=== PATIENT | female | born 1960 | race Caucasian/White ===

== ENCOUNTER 2024-04-20 13:19 | Emergency (ER) | payer SELFPAY ==
[2024-04-20] VITALS (10 sets, daily range): BP systolic 84–139; BP diastolic 53–78; PULSE 69–84; TEMP 36.8; O2SAT 91–100; BMI 24.1
--- NOTE | 2024-04-20 13:25 | XR_ITS ---
The [address] [address] Patient Name: THONG DIAZ MRN: [id number] date: 1960 Sex: F Assigned Patient Location: ED.MAIN Current Patient Location: ER Accession/Order Number: [id number] Exam Date: 04/20/2024 14:00 Report Date: 04/20/2024 16:01 At the request of: JANIA LING Procedure: XR hip RT 2V w/ pelvis RIGHT HIP X-RAYS, 04/20/2024. HISTORY: Right hip pain. COMPARISON: None. FINDINGS: 3 views obtained. There is a right total hip arthroplasty. The femoral head component is dislocated superiorly from the acetabular component. No fracture identified. XR/XR hip RT 2V w/ pelvis IMPRESSION: Dislocation of the right hip arthroplasty. The femoral head component is dislocated superiorly from the acetabular component. No fracture identified. Electronically authenticated by: OPAL CALIXTO Date: 04/20/2024 16:01
--- NOTE | 2024-04-20 13:26 | ED_ITS ---
Documented by User: Alicia Adamson 04/20/24 16:52 HPI HPI - Extremity Injury (Lower) General Chief Complaint: Extremity Injury, Lower Stated Complaint: HIP PAIN/FALL Time Seen by Provider: 04/20/24 13:24 History of Present Illness HPI Narrative: 63 year old female presents to the ED via EMS for pain to her right hip. Onset was this afternoon while standing, rearranging items in her closet. States she had to crawl to her phone. She had a right hip replacement approx 1 month ago. Denies fever, chills, weakness, N/T. She was given 4 mg Zofran IV and 1 mg Dilaudid IV per EMS. Related Data Home Medications ?Medication ?Instructions ?Recorded ?Confirmed amitriptyline 50 mg tablet 50 mg PO DAILY 04/20/24 04/20/24 diclofenac sodium 25 mg 25 mg PO BID 04/20/24 04/20/24 tablet,delayed release duloxetine 30 mg capsule,delayed 30 mg PO BID 04/20/24 04/20/24 release (Cymbalta) levothyroxine 75 mcg tablet 75 mcg PO DAILY 04/20/24 04/20/24 (Euthyrox) Allergies Allergy/AdvReac Type Severity Reaction Status Date / Time No Known Drug Allergies Allergy Verified 04/20/24 13:22 Opioid HPI Opioid Management Most Recent Pain and Opioid Data: Last Pain Scale 10 04/20/24 13:49 04/20/24 Last MAR Pain Assessment 04/20/24 13:43 Review of Systems ROS Constitutional Denies: fever or chills Cardiovascular Denies: chest pain Respiratory Denies: shortness of breath Musculoskeletal Reports: extremity pain; Denies: back pain or neck pain Integumentary/Breast Denies: rash Neurological Denies: numbness in extremities Exam HENMT Mouth: oral and palatal mucosa normal and lip normal Eye Common normals: conjunctivae normal Neck & C-Spine Common normals: supple Respiratory Effort & inspection: able to speak in complete sentences and symmetric chest movement Cardio Common normals: regular rate Peripheral pulses: posterior tibial pulses present and dorsalis pedis pulses present Back & Pelvis Thoracic spine/upper back: no thoracic spinal tenderness and no paraspinal muscle tenderness Lumbar spine/lower back: no lumbar spinal tenderness and no paraspinal muscle tenderness Extremity Other: Tenderness, decreased ROM to her right hip area. Distal sensation intact. Pedal pulses palpable. Right leg appears shortened. MDM - Extremity Injury (Lower) MDM Narrative Medical decision making narrative: X-ray showed dislocation of the right hip. Conscious sedation was completed per Dr. Ricks after she spoke with Dr. Kaplan. Post-reduction imaging showed successful reduction. The patient tolerated the procedure well. She is to follow up with her orthopedist Dr. Aguilar tomorrow morning. She will be discharged to family. Dr. Ricks: I did speak with Dr. Kaplan since she is about 2 weeks postop from her hip replacement and he said it was fine to do the reduction. Medical Records Attestation: I reviewed the patient's medical records. Imaging Data XR hip: Attestation: I have reviewed the pertinent imaging results. Radiologist's impression: ITS Impressions Hip/Pelvis X-Ray 04/20/24 13:25 IMPRESSION: Dislocation of the right hip arthroplasty. The femoral head component is dislocated superiorly from the acetabular component. No fracture identified. Electronically authenticated by: OPAL CALIXTO Date: 04/20/2024 14:57 Pelvis X-Ray 04/20/24 15:18 IMPRESSION: Patient is post right hip arthroplasty with interval reduction and in normal alignment on current examination. No obvious acute fracture is seen. No significant periprosthetic lucency seen. Electronically authenticated by: AURA LYMAN Date: 04/20/2024 15:57 Discharge Plan Discharge Chief Complaint: Extremity Injury, Lower Clinical Impression: Hip dislocation, right Patient Disposition: Home, Self-Care Time of Disposition Decision: 15:53 Condition: Good Mode of Transportation: Private Vehicle Prescriptions / Home Meds: No Action amitriptyline 50 mg tablet 50 mg PO DAILY levothyroxine [Euthyrox] 75 mcg tablet 75 mcg PO DAILY duloxetine [Cymbalta] 30 mg capsule,delayed release(DR/EC) 30 mg PO BID diclofenac sodium 25 mg tablet,delayed release (DR/EC) 25 mg PO BID Print Language: Salvadorean Instructions: Moderate Sedation (ED), Hip Dislocation (ED) Additional Instructions: Follow up with your orthopedic surgeon for a recheck. Please call the [place] office tomorrow morning for an appointment time. Referrals: Physician,Non-Staff, MD [Primary Care Provider] - 1 week Discharge Date/Time: 04/20/24 16:30 Documented by User: Ayesha RicksDO 04/20/24 15:37 HPI HPI - Extremity Injury (Lower) General Chief Complaint: Extremity Injury, Lower Stated Complaint: HIP PAIN/FALL Time Seen by Provider: 04/20/24 13:24 Related Data Home Medications ?Medication ?Instructions ?Recorded ?Confirmed amitriptyline 50 mg tablet 50 mg PO DAILY 04/20/24 04/20/24 diclofenac sodium 25 mg 25 mg PO BID 04/20/24 04/20/24 tablet,delayed release duloxetine 30 mg capsule,delayed 30 mg PO BID 04/20/24 04/20/24 release (Cymbalta) levothyroxine 75 mcg tablet 75 mcg PO DAILY 04/20/24 04/20/24 (Euthyrox) Allergies Allergy/AdvReac Type Severity Reaction Status Date / Time No Known Drug Allergies Allergy Verified 04/20/24 13:22 Opioid HPI Opioid Management Most Recent Pain and Opioid Data: Last Pain Scale 10 04/20/24 13:49 04/20/24 Last MAR Pain Assessment 04/20/24 13:43 MDM - Extremity Injury (Lower) MDM Narrative Medical decision making narrative: I did speak with Dr. Kaplan since she is about 2 weeks postop from her hip replacement and he said it was fine to do the reduction. Imaging Data XR hip: Radiologist's impression: ITS Impressions Hip/Pelvis X-Ray 04/20/24 13:25 IMPRESSION: Dislocation of the right hip arthroplasty. The femoral head component is dislocated superiorly from the acetabular component. No fracture identified. Electronically authenticated by: OPAL CALIXTO Date: 04/20/2024 14:57 Pelvis X-Ray 04/20/24 15:18 IMPRESSION: Patient is post right hip arthroplasty with interval reduction and in normal alignment on current examination. No obvious acute fracture is seen. No significant periprosthetic lucency seen. Electronically authenticated by: AURA LYMAN Date: 04/20/2024 15:57 Discharge Plan Discharge Chief Complaint: Extremity Injury, Lower Clinical Impression: Hip dislocation, right Patient Disposition: Home, Self-Care Time of Disposition Decision: 15:53 Condition: Good Mode of Transportation: Private Vehicle Prescriptions / Home Meds: No Action amitriptyline 50 mg tablet 50 mg PO DAILY levothyroxine [Euthyrox] 75 mcg tablet 75 mcg PO DAILY duloxetine [Cymbalta] 30 mg capsule,delayed release(DR/EC) 30 mg PO BID diclofenac sodium 25 mg tablet,delayed release (DR/EC) 25 mg PO BID Print Language: Salvadorean Instructions: Moderate Sedation (ED), Hip Dislocation (ED) Additional Instructions: Follow up with your orthopedic surgeon for a recheck. Please call the [place] office tomorrow morning for an appointment time. Referrals: Physician,Non-Staff, MD [Primary Care Provider] - 1 week Discharge Date/Time: 04/20/24 16:30 Procedures ED Orthopedic Joint Reduction Moderate Sedation Message Please read if using moderate sedation: 130 mg in total of propofol used. Patient did not have any hypoxia episodes. Fracture was reduced and patient woke up from anesthesia without any difficulty. She is feeling better. Orthopedic Joint Reduction Joint #1: Time out performed: Yes Side: right Joint reduction location: hip Analgesia: procedural sedation Technique used: traction/counter-traction Post-reduction neuro exam: intact Post-reduction vascular exam: intact Post-reduction x-ray obtained: Yes Post-reduction x-ray results: reduced Splint applied: Yes Patient tolerated procedure: well
[2024-04-20] MEDS: HYDROMORPHONE HCL 0.5 MG/0.5 ML SYRINGE IV (13:43)
[2024-04-20] MEDS: PROPOFOL 200 MG/20 ML VIAL IVP (15:01)
--- NOTE | 2024-04-20 15:18 | XR_ITS ---
The [address] [address] Patient Name: THONG DIAZ MRN: [id number] date: 1960 Sex: F Assigned Patient Location: ER Current Patient Location: ER Accession/Order Number: [id number] Exam Date: 04/20/2024 15:25 Report Date: 04/20/2024 15:57 At the request of: SHERLY SOLIS Procedure: XR pelvis 1-2V EXAM: XR pelvis 1-2V HISTORY: R hip reduction COMPARISON: XR hip RT 2V w/ pelvis Date 04/20/2024 1:57:19 PM TECHNIQUE: Single portable postreduction view of the pelvis FINDINGS: Patient is post right hip arthroplasty with interval reduction and in normal alignment on current examination. No obvious acute fracture is seen. No significant periprosthetic lucency seen. XR/XR pelvis 1-2V IMPRESSION: Patient is post right hip arthroplasty with interval reduction and in normal alignment on current examination. No obvious acute fracture is seen. No significant periprosthetic lucency seen. Electronically authenticated by: AURA LYMAN Date: 04/20/2024 15:57
== END 2024-04-20 16:30 | disposition home or self-care (01) ==
PROVIDERS: Emergency Provider Emergency Medicine
DX: T84.020A Dislocation of internal right hip prosthesis, initial encounter (principal)
CPT/HCPCS: 27265; 72170; 73502; 96374; 96375; 99152; 99285; J1171; J2704

== ENCOUNTER 2024-06-07 17:28 | Emergency (ER) | payer OTHER, SELFPAY ==
[2024-06-07] VITALS (37 sets, daily range): BP systolic 106–184; BP diastolic 63–119; PULSE 71–136; TEMP 37; O2SAT 93–100
--- NOTE | 2024-06-07 17:32 | XR_ITS ---
The [address] [address] Patient Name: THONG DIAZ MRN: [id number] date: 1960 Sex: F Assigned Patient Location: ED.MAIN Current Patient Location: ER Accession/Order Number: [id number] Exam Date: 06/07/2024 17:48 Report Date: 06/07/2024 18:57 At the request of: TOBIAS MCGREGOR Procedure: XR hip RT 2V w/ pelvis HISTORY: dislocation COMPARISON: There are no previous studies available for comparison. TECHNIQUE: 1 views of the right hip. FINDINGS: BONE DENSITY: Normal. FRACTURE: No acute fracture. DISLOCATION: There is superior posterior dislocation of the femoral prosthesis. SOFT TISSUES: No radiopaque foreign body. XR/XR hip RT 2V w/ pelvis IMPRESSION: Posterior superior dislocation of the femoral prosthesis. Electronically authenticated by: PROSPER MADRID Date: 06/07/2024 18:57
--- OUTSIDE RECORDS SUMMARY | 2024-06-07 17:35 | XMS_ITS | CCD ---
Author Organization [facility] CliniSywv Care Team Providers Care [employer] Name Role Phone ROWAN BOYD Primary Care Physician [phone] ROWAN BOYD Attending Unavailable ROWAN BOYD Admitting Unavailable Winston Juan ISAACS Primary Care Provider HOUSE, DO JUAN Storey Admitting Unavailable HOUSE, DO JUAN Storey Attending Unavailable HOUSE, JUAN P Primary Care Unavailable HOUSE, DO JUAN Storey Attending Unavailable HOUSE, JUAN P Primary Care Unavailable HOUSE, DO JUAN Storey Attending Unavailable HOUSE, JUAN P Primary Care Unavailable HOUSE, DO JUAN Storey Attending Unavailable HOUSE, JUAN P Primary Care Unavailable HOUSE, DO JUAN Storey Attending Unavailable HOUSE, JUAN P Primary Care Unavailable [place], Carmelo Dixon Attending Unavail able HOUSE, JUAN [place] Primary Care Unavailable [place], Carmelo Dixon Admitting Unavail able Jeff, Carmelo Dixon Admitting Unavail able Jeff, Carmelo Dixon Attending Unavail able Quinn Clarke Unavailable HOUSE, JUAN [place] Primary Care Unavailable JEFF, CARMELO Wylie Attending Unavailable MILADIS LICEA Attending Unavailable CARMELO AGUILAR Referring Unavailable DEBBY WOOD Attending Unavailable CARMELO AGUILAR Referring Unavailable DALE MAK Attending Unavailable DEBBY WOOD Referring Unavailable JEFF, CARMELO Wylie Attending Unavailable DALE MAK Attending Unavailable WOODDEBBY Referring Unavailable JEFF, CARMELO Wylie Attending Unavailable DALE MAK Attending Unavailable WOODDEBBY Referring Unavailable JEFF, CARMELO Wylie Attending Unavailable JEFF, CARMELO Wylie Attending Unavailable CARMELO AGUILAR Referring Unavailable DEBBY WOOD Attending Unavailable CARISSA MCKINLEY Attending Unavailable CARISSA MCKINLEY Referring Unavailable Medications Current Medications Medication Drug Class(es) Dates Sig (Normalized) Sig (Original) acetaminophen 325 mg / HYDROcodone bitartrate 10 mg oral tablet (3 sources) Opioid Agonist Start: 03-08-2024 End: 03-13-2024 take 1 tablet by mouth every six hours for pain HYDROcodone-acetami nophen ([place]) 10-325 MG tablet Indications: Post-op pain Take 1 tablet by mouth every 6 (six) hours if needed for severe pain for up to 5 days 20 tablet 03/08/2024 03/13/2024 Active amitriptyline hydrochloride 50 mg oral tablet (20 sources) Tricyclic Antidepressant Start: 01-20-2024 take 1 tablet by mouth at bedtime amitriptyline (Elavil) 50 MG tablet Take 50 mg by mouth at bedtime 01/20/2024 Active diclofenac sodium 75 mg delayed release oral tablet (20 sources) Nonsteroidal Anti-inflammatory Drug Start: 01-14-2024 take 1 tablet by mouth in the morning diclofenac (Voltaren) 75 MG EC tablet Take 75 mg by mouth in the morning and 75 mg before bedtime. 01/14/2024 Active DULoxetine 60 mg delayed release oral capsule (20 sources) Serotonin and Norepinephrine Reuptake Inhibitor Start: 01-12-2024 take 1 capsule by mouth in the morning DULoxetine (Cymbalta) [address] capsule Take 60 mg by mouth in the morning and 60 mg before bedtime. 01/12/2024 Active ferrous sulfate 325 mg delayed release oral tablet (7 sources) Start: 02-10-2024 End: 03-11-2024 take 1 tablet by mouth at mealtime ferrous sulfate (Fe Tabs) 325 (65 Fe) MG EC tablet Indications: Primary osteoarthritis of right hip Take 1 tablet (325 mg) by mouth in the morning. Take with meals. Do not crush, chew, or split.. 30 tablet 02/10/2024 03/11/2024 Active levothyroxine sodium 0.075 mg oral tablet (20 sources) l-Thyroxine take 1 tablet by mouth before mealtime levothyroxine (Synthroid, Levoxyl) 75 MCG tablet Take 75 mcg by mouth in the morning. Take before meals. Active oxyCODONE hydrochloride 5 mg oral tablet (3 sources) Opioid Agonist Start: 03-03-2024 End: 03-08-2024 take 1 tablet by mouth every six hours for pain oxyCODONE (Roxicodone) 5 MG immediate release tablet Indications: Post-operative pain Take 1 tablet (5 mg) by mouth every 6 (six) hours if needed for moderate pain for up to 5 days 20 tablet 03/03/2024 03/08/2024 Active piroxicam 10 mg oral capsule (20 sources) Nonsteroidal Anti-inflammatory Drug Start: 11-29-2023 piroxicam (Feldene) 10 MG capsule 10 mg 11/29/2023 Active Problems Active Problems Problem Classification Problem Date Documented Date Episodic/Chronic Nonmalignant breast conditions (20 sources) Fibrocystic disease of breast; Translations: [Diffuse cystic mastopathy of unspecified breast] Onset: 01-23-2024 01-23-2024 Chronic Osteoarthritis (20 sources) Osteoarthritis of right hip joint; Translations: [Unilateral primary osteoarthritis, right hip] Onset: 03-09-2024 03-09-2024 Chronic Other connective tissue disease (12 sources) History of total hip arthroplasty; Translations: [Presence of right artificial hip joint] 03-14-2024 Chronic Other connective tissue disease (20 sources) History of repair of hip joint; Translations: [Presence of right artificial hip joint] Onset: 03-09-2024 03-09-2024 Chronic Other nervous system disorders (20 sources) Difficulty walking; Translations: [Difficulty in walking, not elsewhere classified] Onset: 03-09-2024 03-09-2024 Chronic Other nervous system disorders (20 sources) Hip pain; Translations: [Other acute postprocedural pain] Onset: 03-09-2024 03-09-2024 Episodic Other nervous system disorders (2 sources) Postoperative pain ; Translations: [Other acute postprocedural pain] 03-03-2024 Episodic Thyroid disorders (20 sources) Hypothyroidism; Translations: [Hypothyroidism, unspecified] Onset: 08-28-2019 01-23-2024 Chronic Past or Other Problems Problem Classification Problem Date Documented Da te Episodic/Chronic Spondylosis; intervertebral disc disorders; other back problems (20 sources) Chronic neck pain; Translations: [Cervicalgia] Onset: 01-23-2024 01-23-2024 Episodic Sprains and strains (20 sources) Acetabular labrum tear; Translations: [Other sprain of right hip, initial encounter] Onset: 01-23-2024 Resolved: 01-23-2024 01-23-2024 Episodic Results Test Name Value Interpretation Reference Range Facility XR Hip - right 3 [facility] Imaging Result: AP and lateral of right hip showed acceptable position and alignment of right total hip arthroplasty. There was no evidence of loosening of the acetabular cup or femoral stem. Femoral head was well centered in the acetabular liner without evidence of asymmetric or accelerated wear. There was no gross evidence of fracture and/or dislocation. Impression: Unremarkable right total hip arthroplasty. [facility] XR Hip - right 3 ViewsOrdere d By: Jr. Dudley on 05-31-2024 [facility] Work Phone: XR Hip - right 3 [facility] Radiology Study observation (narrative) [facility] Outside Recordson 05-16-2024 Outside Records [id number] [facility]-25-[facility]24 Outside Records [id number] 72[facility] PAC[facility] MAGR PACU Record Summary Primary Physician: Carmelo Aguilar DO Finalized Date/Time: 04/24/24 12:33:36 Pt. Name: STELLA WILSON Zahra Rowland/Sex: 1960 FEMALE Med Rec #: [id number] Physician: Carmelo Aguilar DO Financial #: [id number] Pt. Type: D [place] [facility] [place] [facility] [place] Admit/Disch: 03/06/24 06:57:59 - 03/07/24 13:30:00 Institution: PACU Case Times MAGR Entry 1 In PACU I 03/06/24 12:01:00 Discharge from PACU 03/06/24 13:23:00 I Last Modified By: Janey Crespo RN 04/24/24 12:33:34 Finalized By: Janey Crespo RN Document Signatures Signed By: Michelle Khan RN 03/06/24 13:31 Janey Crespo RN 04/24/24 12:33 Unfinalized History Date/Time Username Reason for Unfinalizing Freetext Reason for Unfinalizing 04/24/24 12:33 MHRSCOTT Correct Documentation Decreased time by 1 minute in order to drop charges. [facility] MAGR Postoperative Recordon 04-24-2024 MAGR Postoperative Record MAGR Phase II Record Summary Primary Physician: Carmelo Aguilar DO Finalized Date/Time: 04/24/24 12:40:16 Pt. Name: STELLA WILSON /Sex: 1960 FEMALE Med Rec #: [id number] Physician: Carmelo Aguilar DO Financial #: [id number] Pt. Type: D Room/Bed: [facility]/ Admit/Disch: 03/06/24 06:57:59 - 03/07/24 13:30:00 Institution: Phase II Case Times MAGR Pre-Care Text: Patient is free from s/s of injury. Patient remains free from compromised physical state related to surgery or anesthesia. Patient comfort maintained. Patient/family verbalize understanding of discharge instructions. Entry 1 In PACU II 03/06/24 13:26:00 Discharge from PACU 03/06/24 18:59:00 II Last Modified By: Janey Crespo RN 04/24/24 12:40:15 Post-Care Text: The patient remains free from s/s of injury. Patient's vital signs stable, circulation maintained, return to preop mental and physical status, opsite/dressing intact, minimal or absent nausea and vomiting, tolerates po intake. Patient verbalizes adequate pain control. Patient/family express understanding of discharge instructions. Finalized By: Janey Crespo RN Document Signatures Signed By: Janey Crespo RN 03/07/24 08:20 Janey Crespo RN 04/24/24 12:40 Unfinalized History Date/Time Username Reason for Unfinalizing Freetext Reason for Unfinalizing 04/24/24 12:40 MHRSCOTT Correct Documentation Decreased time by 1 minute in order to drop charges. [facility] Outside Recordson 04-24-2024 Outside Records [id number] 83#1.00OTGTIFF [facility] XR Hip - right 3 [facility] Imaging Result: April 21, 2024 x-rays AP and lateral of the right hip demonstrate a Press-Fit hip replacement in good position alignment. There are no signs of loosening or fracture or failure. Hip version and orientation appears anatomic Impression: Stable appearing hip anatomically status post hip replacement and subsequent dislocation and relocation Zack Aguilar D.O. [facility] Radiology Study observation (narrative) [facility] Outside Recordson 04-18-2024 Outside Records [id number] 42[facility] Coding Summaryon 03-27-2024 Coding Summary HTMLBase 64 ZuztnfecWNy2qLl+PGhl YWQ+GM1VKMTaL66isEQv rU3bE5NYNCdOPldsRHIO QDbJYnDbahNgWC4imBCd ZXJu IC8+LX5eTMSyNrgypNVm t5B4aHA8I20jna0pXQyh iSG1ZFUeVtDkuboqv4pl ePb2YKggVechQiJb VGIvvO06YWR1nU72Qm88 zLFpkTWkl6hyzLj2UtVc OOEgZMN1jQdwZSoqv3Fp TTMeJ57ucAQih1J4 IGNvbGxhcHNlOyBlbXB0 bD6jWBuaxczbi7pjjsre Olt1hm67qUCcx4W6mCW5 D2VdmwZ8HQTbhHHk YoxcjAVHyY9uapzoi3kp qghsKaOaRLNhGEy1TOr1 TFUmcZhqZlTuBX19OBD6 IATbdqAmD6ApUWYc wLarDtQ7b3I2Ck7QH4VZ LokrB9USIMWVTSiewEH+ YV31hz12F3JhUymjAhq6 FNSrJMI3dPI2pU0z ISFzJActn7V1aDD7T6Mm vgVupv3al4mdOTVgIJfd U28xxYDtj5B5DQUzeYD6 MPTgzCjkDfRnwR74 Oyc+WKDorFppo6YrFlxy c3ymr8bonAs3DhssJYLl ygLtjDavUJF0c6XkMx0e HZZieXF3cKZ9lN1w JyJeWqQ9LZfxI444AjEr sXZqJotwZ54oW0NnpKO+ VJKeAvr2FQUftMqxSN6f V2VpDUYqszyleSWk iYyhCL7hEFQxmhmgPERx fA2iDWXiD8l7WrXdDyN4 USpmT7ZjSCGbleziSa34 fN2jJwWpNyE5GEba Y4GhivY1FAKtnDXeARvp FWX8P70st5I9RSUtMOYn YUD7pVE5lS4itJgjewjy bGVmdDsgdmVydGlj FJdsCZznP721ODFqgHzw PkNvZGluZyBEYXRlOiAg MTAvMTQvMjAyNDwvdGQ+ FJSqUBB4nWroPFCq kQPhBOspId8uwQpavNer YU7wENUrbmboAUOqaT1j AWOdlSPkzCnqEA6mEWFb nfvyw605AeGaLBT4 QGCwjYVeI2GwqK9hNqHg SMEiVRJmY2AodWZnKXqs O218ULonIvL0UORdlhIp Y9YoPTVjzTwmOhS4 z1M0Uv7If7QdemlkX4Cy gRNlCgElJukpKMj4C6Ru PjwvdHI+WY89IEHkRH90 KMe3LUS5fWuqFXam KLYtA4EhnI1aOiHzRSVf ZGRkOyc+PHRhYmxlIHdp ZHRoPScxMDAlJyBzdHls LO0bDu5bKDKeXGUw zVuieYUvKtKcf9qcTMMp PHmyLJ7eqBizY6XrdFU9 DKXhv8e6Bt29Z65aM5Ul dXA+EJSkzDM3gLG6 hI6hTgMsNoS0NXrnN385 TyWeaEJcEtzhu7lqm9bw qHu5CaA5VPGnvvGmkZsc EXS1n9SkMd40K08j IHdpZHRoPSIxNSUiIHZh mQueir1byX0fMy8+PGNv uEN7uUC6cJ8vUpCnHsD4 RPegH031BrRieNBf Afypx3rht3kmpBc6NpXn NJFdpuHymHbqGQN5o9Ib Tk47W3OrpFksk6EpFvl7 jz71jPOvd3D0uXS7 H4YgWEDkasltoBEmmYyo UC1sDCTzcfhnXHBiiV7x AITbV0i1JeMjUgX4ZRzi B2RiznF2HDPfiBUp WOJwyECIgF0mjhupw3sf ftnfDqBbTQEkYZg2HNy3 RUIotQzcWbXiNGL1AoW1 PFR6lNOgaO0hzXfa ixezmU2uYuy+XQM8mELw lVHHNF4wObvkySM+PHRk PVE8nLyyRSxzURXojQ5z GBFjM8k6YjQxYkD8 OCkhO8WtloJ0DOHemGOi SFIlsZZTqG4dsvkjn8mt jhjpDvLsNITxJOw3UIn1 LWFsaWduOiBsZWZ0 IsJ9UDQ6eFLecN9gsXdn uctodY4mBra+QmlydGgg KIN6DQz6V1IrWvp6TQHw xNgqZY2iqTMmZZxq Nx8leShhsTikQS3rMDWk uwkkb287WeJbj6vcGTFk tAKbFEhbXNT4H86zx6D5 BUSoHYHgFMR2cYH6 eO0yfWinollsuLHfvQej ukJszDonJGecMIoiI467 UGNvjGuqHdZwXSx3E5Lo Dkt3OGWvtIhpEW4f dMHeAJadEa0vxBuvcDtp DS9cUEDmeazcw539YvNe o7lxWQFrdWPnFThaETH3 X10ur6L5DZMyTEMc KJB6wIS9tA6qaIwoiets bGVmdDsgdmVydGljYWwt NXmpE379CPJuuUbcHnGt eRn3T5WzGgl8DXGc wNrwOC2cfFEyDTlnXf0i cFzivLzkBO8tHEYwdeee z885YeNfu6hyVZHxjTJn KMunJBT7Q63xv5D2 EBZeIAMaYHF4qXL3aL9k bGlnbjogbGVmdDsgdmVy kZvoQRazZDzeX114UYXa cDsnPlBhdGllbnQg JEvbUPs0Q4JcNpryjVU+ GE36PNTcBH27hPFshMRb u4hpgJe3GqXpOUWcBJK1 uFzvNOepg0AfZINj N61sjNYax1C0VKHolYzo eXLwMnLqqVN1yH2rAIud jntmg2bfkwbdGptiq1xt mw01gN13W35tQZvs ZHRoPSIzMCUiIHZhbGln vm1vlY4nPe0+PGNvbCB3 eGA4pR6iJKWvRrK0RIwc H051DlDaeIKzFwsw r1wtu7mapMv2GeD2BIDc jdRkxYivMYR6l0NhTc18 F26kSDihHVLpHSPrURDf AXUroNvrlp8zzG6a Ii8+QHIowKD6fRA9fT3m BqLvCqQ1VCiiM682JqEk yGPnXbagT55dR3JwoGO+ SNYsNga9BYTcwChm NR1xiQRxAWgeSm0fMHZ6 ZyKdYaCeWLpgD9QhEOUg xlkxkltlhNR9AUSjVYLy iD59Db1wgJqkAVVb yPBTpP7cwybng2bzjtly PtGtXHQwWVb7KGi6HBMq sRsyHoJjDSE5SnU4EES1 aIAaiM4dqCytdioa jG6xH3XaGLMxttrpXr10 oT0qBhInIvT1UMmcLpf+ N1qPGgRWKQITDY6JRLJq UzwvdGQ+PHRkIHN0 hYvgXDgnQRYnzW3hTSEz T8j4RnMyXtP0ICwwJ7Lu PJAghwczXw59wO8cDcOp MoF3IAcwW3YwwyH3 RTDkcWNyOGcbSTY2A90d z5S6NJWoUSCkQJO7hYV2 xD3wsRivunopyFTdrCtd dmVydGljYWwtYWxp U489QOGguKubNlOvNiQ3 JwY8MiF6R0HuFjf6LTTf dZvoJI7pwSBwGDhzGf3q fHtvjKooAS9zXKIj ytasTQPzkF9mJONmsBBc dTokRU9gDVDzsyjao708 GgFsXTR9UAKsuPEwO0Bf bQ2dGbUePPYjSHZu C7WxtDIeDVxxX472PUgd JiP4POPqxrFpL9BvABIc uZztNeY3f3D1Bi87WQFF ZWFyczwvdGQ+PHRk MWU7mNtuCFqaPSXhqK5y ARWpV3n5HuCaPyK5ADfg S5XcMJRwdyouUz49zE4m CoMtXmL7EFtoC4Km ljI2ONNuaIDhINatOOR7 V98kt6P5DXTrZTAzWUS2 aMR0dX2psFdniojedJAy dDsgdmVydGljYWwt ERouQ617MWUuuReeDdHY TUFMRTwvdGQ+PHRkIHN0 hWbcNAobUAPiuA1yTVVb R9n3QeTpXnJ9OHup S8EfMTErczyyMe44jJ2s FzYhCwU0FQkdL8KqrxI9 CJCqyQMtETupYVJ8H99m f2C1IOUgTCNuAUN6 fMD1qG7wxKhrtexhrRWv dDsgdmVydGljYWwtYWxp U363AHLnmZprTqKmoBFJ tUAePMS4JN64EE39 M7MwIoifvASssUC+PHRh YmxlIHdpZHRoPScxMDAl CmOuvHeoPV1uTm6fRYLn LWNvbGxhcHNlOiBj z6njHSObHUeoVS5wcFxl K8MyjGL4KLWxd7j5Ac18 J24fK8ImyOV+PGNvbCB3 iCO5hV8rSfEsDwA1 SJqgX459XpJvqHVmYvnd j7yvq7yauOg9CgQtODJe koOvxCcaYUL7q4QlPa21 J97kSNurYGRdKCRr FEAdYINasKevvp8urX5s Ii8+AKUacMT5fYU8gS0m QfNkGcE1GHkuT371LxBg gJJoEaqnL31cK0Dl dXA+QXEaQxx4KRWtzCzw NG2pnIUdXIopKj6lFXO2 XkJyYnLfEGlrE6KhPCCi qfbmqmkcgBS7LLBp HYGbkK95Wa6hjPxcZe0u NCXaPYG9LZGpiJFgF2Nh qZ0mSiJwMVHrTYRpF1Ef lQGjOWzgC752EPci GmZ5OOKwfwMoN9YsTQIk oPteDlT4v1K0Hw0RzIhd lMSdBZ9vLiGnGMl4S6Yu Slw9OBOypPzvIM2t wYBmRKxaYv9gcWhoxYoi KN5uMVSpvbtrm885CkJd a8xuZVGrhOTyDBeoDUI4 F52yd2E5POUdCAOt ESA9iPT7hD7ywElibaih bGVmdDsgdmVydGljYWwt CAkoL118YXRjhEgfTgGA Cuz8Y2JfBgf8JDMy gXceMP2aoILfZQfmCr8p jWyasBwaRA0bGLDucgub u609LiSgt6mgBWXwgYOa CKixBNZ9E55sv9R0 ZYZnLSSmXPC1cHL1uB5g bGlnbjogbGVmdDsgdmVy yQicATiaZEjxO153QZBc bWfqEy2CPjl6F7Cd Wlh5IRBsaQgdOV0geBQa FHoeQo6qvNbopTqlNB8b HFTroojky908XyExv4tu IDEwcHQgVGltZXM7 H01qe8M7EXItTBCoRYZ9 cLW9eI0rnJphfpqskPEw dDsgdmVydGljYWwtYWxp K717OTAfcLmxAyBv eWVyOjwvdGQ+RB96wo84 O9GxQroeJcl5XRNmWNF4 kRK7kR8yMUKvVDqoo0O5 jSR0X0KmqdXqrr1q b2x (more content not included)... [facility] Outside Recordson 03-22-2024 Outside Records [id number] [facility]-15-2024 Outside Records [id number] 49#1.00[facility] Consultation/Specialist Note on 03-14-2024 Consultation/Special ist Note [id number] #1.00[facility] Provider Orderson 03-14-2024 Provider Orders [id number] [facility] 03-10-2024 Anesthesia Note [id number] #1.00[facility] Consent Formson 03-08-2024 Consent Forms [id number]# 1.00[facility] Telemetry Stripson Telemetry Strips [id number]# 1.00OTGTIFF [facility] Consultation/Specialist Note on 03-07-2024 Consultation/Special ist Note Patient: STELLA WILSON Age: 63 years Sex: FEMALE : 1960 Associated Diagnoses: None Author: CARISSA MCKINLEY Basic Information 1 day s/p RT SAMANTHA (DOS 03/06/24) Subjective pt is sitting up in bed, pain is 5/10, she is looking forward to going home today Review of Systems denies chest pain, shortness of breath and nausea Health Status Allergies: Allergic Reactions (All) No known allergies Canceled/Inactive Reactions (All) Severity Not Documented No Known Medication Allergies- No reactions were documented. Objective dressing to the right hip is clean dry and intact, ice pack to the right hip, epc cuffs and vincent hose on bilaterally Impression and Plan d/c home once pain is well controlled and has been up with therapy at least twice more, f/U in office within 10 days s/p surgery [Electronically Signed on: 03/07/2024 08:31 EDT] CARISSA MCKINLEY [Verified on: 03/07/2024 08:31 EDT] CARISSA MCKINLEY [facility] Inpatient Patient Summaryon 03-07-2024 [place] [address] Patient Discharge Instructions Name: STELLA WILSON : 1960 Patient Address: [address] [place] [address] Primary Care Provider: Name: JUAN WHITE DO After you are discharged if you find you have any questions, please, call [phone] ext [phone] to speak to a nurse. The Pharmacy at [facility] is open Wednesday through Wednesday from 9A to 6P and Wednesday and Wednesday from 9A to 5P Discharge Diagnosis: Primary osteoarthritis of right hip Prescription Information: If you have been given a prescription for narcotics, seek immediate medical attention if you have any difficulty breathing or any sudden status changes such as confusion and sleepiness. If you or anyone you know is experiencing suicidal thoughts, mental health, alcohol and/or drug addiction problems; contact the [facility] 04/01 Crisis Hotline -Text 4HXBS to 031032. If you received any narcotics, sedation, or any other medication that causes drowsiness for the next 24 hours, unless otherwise directed: ? Do not drive a car. ? Do not operate machinery such as power tools, lawn mowers, drills, sewing machines, or stoves ? Avoid alcoholic beverages and drugs for allergies, nerves, or sleep ? Do not make important personal or business decisions or sign any legal documents [facility] would like to thank you for allowing us to assist you with your healthcare needs. The following includes patient education materials and information regarding your injury/illness. STELLA WILSON has been given the following list of follow-up instructions, prescriptions, and patient education materials: Follow-up Instructions With: Address: When: Carmelo Aguilar [address] [place] [address], [address] [place] [id number] Business (1) 03/14/2024 10:15 AM Medications During the course of your visit, your medication list was updated with the most current information. The details of those changes are reflected below: Medications That Were Updated - Follow Below Instructions Other Medications Updated: oxyCODONE (oxyCODONE 5 mg oral tablet) 1 tab(s) Oral (given by mouth) every 6 hours as needed Pain - Moderate for 5 Days. Medications to Continue That Have Not Changed Other Medications amitriptyline (amitriptyline 50 mg oral tablet) 1 tab(s) Oral (given by mouth) once a day (at bedtime). Refills: 2. diclofenac (diclofenac sodium 75 mg oral delayed release tablet) 1 tab(s) Oral (given by mouth) 2 times per day. Refills: 5. DULoxetine (DULoxetine 60 mg oral delayed release capsule) 1 cap(s) Oral (given by mouth) 2 times per day. Refills: 5. levothyroxine (levothyroxine 75 mcg (0.075 mg) oral tablet) 1 tab(s) Oral (given by mouth) every day. Refills: 2. It is important to always keep an active list of medications available so that you can share with other providers and manage your medications appropriately. As an additional courtesy, we are also providing you with your final active medications list that you can keep with you. amitriptyline (amitriptyline 50 mg oral tablet) 1 tab(s) Oral (given by mouth) once a day (at bedtime). Refills: 2. diclofenac (diclofenac sodium 75 mg oral delayed release tablet) 1 tab(s) Oral (given by mouth) 2 times per day. Refills: 5. DULoxetine (DULoxetine 60 mg oral delayed release capsule) 1 cap(s) Oral (given by mouth) 2 times per day. Refills: 5. levothyroxine (levothyroxine 75 mcg (0.075 mg) oral tablet) 1 tab(s) Oral (given by mouth) every day. Refills: 2. oxyCODONE (oxyCODONE 5 mg oral tablet) 1 tab(s) Oral (given by mouth) every 6 hours as needed Pain - Moderate for 5 Days. Take only the medications listed above. Contact your doctor prior to taking any medications not on this list. Medication leaflets, if any, will display below Diet & Activity Patient Activity Level: As Tolerated Patient Diet: Regular Patient Activity Restrictions: Patient education materials, if any, will display below POST OPERATIVE TOTAL HIP DISCHARGE INSTRUCTIONS: Physical Therapy: -WBAT to operative hip -Focus balance, transfers and steady gait -Use a walker -Do Not Do Active Hip Abduction Exercises On Either Hip -Ok to do ROM on knee SURGEON'S WRITTEN INSTRUCTIONS: Change dressing daily. When clean and dry for 2 days may leave open to air. Vincent hose (compression stockings) for 6 weeks. Physical therapy as prescribed. May shower, no tub bath. Do not rub/scrub incision. Wash gently. Take Aspirin 325mg daily to prevent blood clots, coated or uncoated per patient preference. WHAT YOU SHOULD KNOW AFTER YOUR OPERATION: If you need pain pills, start before the pain becomes intense. Pain pills are frequently less upsetting to your stomach if you take them with food such as crackers or bread. If you have excessive or persistent pain, swelling, bleeding, lisette (more content not included)... [facility] Pharmacy Noteon 03-07-2024 Pharmacy Note I have personally reviewed the patient's medication list upon discharge including, prescription medications, OTC products, vitamins and supplements. Below are the following medications the patient is discharged on. Medications That Were Updated - Follow Below Instructions Other Medications Updated: oxyCODONE (oxyCODONE 5 mg oral tablet) 1 tab(s) Oral (given by mouth) every 6 hours as needed Pain - Moderate for 5 Days. Medications to Continue That Have Not Changed Other Medications amitriptyline (amitriptyline 50 mg oral tablet) 1 tab(s) Oral (given by mouth) once a day (at bedtime). Refills: 2. diclofenac (diclofenac sodium 75 mg oral delayed release tablet) 1 tab(s) Oral (given by mouth) 2 times per day. Refills: 5. DULoxetine (DULoxetine 60 mg oral delayed release capsule) 1 cap(s) Oral (given by mouth) 2 times per day. Refills: 5. levothyroxine (levothyroxine 75 mcg (0.075 mg) oral tablet) 1 tab(s) Oral (given by mouth) every day. Refills: 2. Discharge Med Rec Notes: Counseled patient on new medications of oxycodone. Reviewed admission medication list against external fill history and available [facility] medication history to ensure accuracy. Reviewed regimen upon discharge which is appropriate and correct. [Electronically Signed on: 03/07/2024 12:03 EDT] Sánchez Cramer PharmD [Verified on: 03/07/2024 12:03 EDT] Sánchez Cramer PharmD [facility] Progress Note - Nurseon 02-13 Progress Note - Nurse Patient discharged to home. Patient to follow up with Dr. Aguilar. [Electronically Signed on: 03/07/2024 13:26 EDT] Haylee Desai RN [Verified on: 03/07/2024 13:26 EDT] Haylee Desai RN [facility] Anesthesia Noteon 03-06-2024 Anesthesia Note Patient: STELLA WILSON Age: 63 years Sex: FEMALE : 1960 Associated Diagnoses: None Author: Quinn Clarke DO Postoperative Information Post Operative Note: Post Anesthesia Care Unit. Physical Examination VS/Measurements Vital Signs 03/06/2024 13:26 EDT Temperature Temporal Artery 36.3 DegC Heart Rate Monitored 87 bpm Respiratory Rate 16 br/min Systolic Blood Pressure 113 mmHg Diastolic Blood Pressure 67 mmHg SpO2 98 % Oxygen Flow Rate 1 L/min Oxygen Therapy Nasal cannula General: Alert and oriented. Review / Management Condition: Stable. Assessment Anesthetic outcome No anesthetic complications noted. Plan Transfer/ Discharge: Patient can be discharged from PACU when criteria met. Condition good. [Electronically Signed on: 03/06/2024 13:42 EDT] Quinn Clarke DO [Verified on: 03/06/2024 13:42 EDT] Quinn Clarke DO [facility] Anesthesia Note Patient: STELLA WILSON Age: 63 years Sex: FEMALE : 1960 Associated Diagnoses: None Author: Quinn Clarke DO Preoperative Information Anesthesia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 ZGRkOyc+PHRhYmxlIHdp ZHRoPScxMDAlJyBzdHls BT1hBb5nAMCbENHf yDxdqQVvUnQze5haXSIf BFnkOW1puLedO7UryMI9 KJBjq0d2Mb14D09iX0Bm dXA+FVCnvKL0vZI7 uJ1hYsPkMhW1HIvwT189 LtUgmOUlPupfp5tva9ie jZd4RdZ4FRWoetNgfAjg OTC6f0PfPf35T33d IHdpZHRoPSIxNSUiIHZh bMvoae5eoL9pJa1+PGNv oZW3qDA3zY5oCkKgUyZ1 WWrvM204YxFakPXw Ougyh2yje4fajJy5LzWe VJWbmyKpeTqdJGT4l5Vh Ya40X5XfnCayn2VyTrm4 sa62xDTfa0E5iDF1 M2SxBYSuwwznpGBnnWzk RW1xZLTzktmlIVEdlD6z LXXwB8q4NvXaZbQ9BDog K3TrtmQ1XSFwyFTp CQVgoCYNhE0mgffgs4hi ppghDfFyQDVsNPy7OYi3 YISbkJoxRcKkPSU5VdH6 DBU1hPGhdN9ktAny qjeliZ4bYzf+FZQ7tVTs mDLVGW5fCsschDZ+PHRk ZDZ7fNvcVPkcZYRooA9g FJYmR2k6GvQsUgY9 DQhbC3YptjT7HUPkqFVe BVFnrZBNdK4zcopsr4bl rzflPnAeNMDwHHi1UAl3 LWFsaWduOiBsZWZ0 XhZ3TYB9oRCttO2yhAjo wdvykX1kOno+QmlydGgg ZUP0WZm0W6McYbi0TQMn wWjlST7cyZEzXXib Xl0qhCkhyJckOZ9lHZUt qgods177OxSqi2wjBNMb aTKuPBvnOJW9P72mn9E3 RGCzMBTlZIU1iTF1 wA1dtXqfbbbfdAXhvCgg kwNhfHidBRosAZnkL588 RCBamWjyCdDtJRy2J6Tb Zub2RLMabEiiHH0k yDNaTQnjNm1zbImbdYwo VR7jMOMgsradl098IuHt p2nmVLYbrEHsINvsWWP9 C43sl8X1MFFfZIAb VIF6xFA9tV0kzNipehay bGVmdDsgdmVydGljYWwt KBwaK700KJVkxMxtGsJr dFi0E7SjUtf8JYWr zOzkKB8rbBMrYIgkPp6n oCejrXgxEZ5lOXWqohse z609CrVll4thXDLxnZTk ABdzPSF4M20zd8F1 EMDuLIGlOSS6xFY2sD4w bGlnbjogbGVmdDsgdmVy uMrdMKcgEJfhK350VZSv cDsnPlBhdGllbnQg NMwtQGz4H7TmWvfcvMM+ EN71IUDvVQ95bXKuiLCd e2tiqXv6AbEfGZMtIZM5 xLuuUUshh5EfIKIl J11uyGKiu2C1FPIaqLbj oZKtOpPcsND8iW0eEHao ualtg3lhcsjvXavxb9wi xf50gX16R80kLTfn ZHRoPSIzMCUiIHZhbGln rh6keA3bDw1+PGNvbCB3 nOB6wO2iBSCuJvS4DTel V099OxQzmMNnAzps f8msc2nmzIm9QtR3ZVIh bvQjqUvmXTM8u8PbZv20 D69nZEpwKZKuNXEvCOIe XYWgcGbqec0ioO5m Ii8+PVOtyVY9mRR1eG6j MnJwVvC4YZqgU271YxZd oGSrXcswE36rQ6LkfAJ+ AKZiKnt0LOQrqDld HC7jzYTiSUeiCb1tWBH5 PcPwCsZnERdrX1CbEIZi ttnsimofaFI0XKMdLMUf lH62Dg8zzFzxZBUb eVXYsA2zklwhs4ijpeov YzEcCGWzFXz9PAw6JZBc oGqfPoApGFK0FmY3FPQ5 cQNvoT3srZztllew hQ9sC7QuQNGktgtpYm29 nD6wRpSrJzC0BBtiMum+ I2xYFyMNVJLSRE3SKVJe UzwvdGQ+PHRkIHN0 iLbnBTnpPSNguA2lLEDw A6s0RxUgTxO0CQnuK4Oe ZJHujojgSr48jA5sTeFf BaL4BYsfV8RbmwV5 OEGoqVTrGZvgTBQ5Y25j e7Z8DJMhXZErZBN8hAN5 nH8ypFzfiyhkeQTmxKnl dmVydGljYWwtYWxp D025ZBRioWivDjHwSkO4 VjQ6DlW7E9LlCoe3KNVr cGieGE3qdBUwJJifHd3o eRrnpBvnTT2vWUFx aazaLDPsaT2oTRNhjZDp qPklRQ8tXTEsvnbeb452 FpTxNJG7FQBgzFVnO8Gj yS0iSpFiWGWyUIRj I4IkyKXzHVedZ763DAnk ByR4UHGskeUfC3ZwZOHo vJlyVbB3l9N9Dy19LVRT ZWFyczwvdGQ+PHRk VOU9mHflOSkbAJAmgH9c YBRtU1j5NrPsVpZ1SKhl B5RaNXDgltrcTz90lY4o QrZePfO0OLfvH5Jr qbF9FCOobTDlBGqzFKN2 X74yk2Q9YOCpFITgQAQ2 yEY4hH4rgIgtjqageAGu dDsgdmVydGljYWwt QCnjC087IVChrZzkYzLR TUFMRTwvdGQ+PHRkIHN0 bDijACtjKLMpxB6pGBBk M9a5FzUrBhC5SXte O8GtSZEfwjanDg89gC4p MpDcPmL7UYviU8QonaT2 HTPjhUYdWIxzGWD1C14y a5E9XEWhGIBkMHG9 iUL3aK7ocTbzeswxaOIr dDsgdmVydGljYWwtYWxp J330ZVKhdHyqYs8WPB94 OD16M5AtDfdbeJOm bGU+PHRhYmxlIHdpZHRo QJjpVCEnKlZdjJelEJ8w Ym8dWTStGCJvqAiveBHy RoWvi6ciZFFkMNmp JS5ztVaoN7BvwPQ2PWBk p0g1Qp81W47fR5TbvJD+ MUYowXL0jPK4vP6mVbXa SxH9ZIafH498MqMx sTLlWqcqz7uqe9jszFb3 IjMwJSIgdmFsaWduPSJ0 d3CwTu19P85xDSiiXJHv PSIyMCUiIHZhbGln xw5baI9aFw3+PGNvbCB3 zSP5dU3hPiHzQsJ2EElc F905OoAthIWaAzsoG98i K2DpsEG+PHRyPjx0 YQBkhVrpHN8anGGxLUif Ku3fEZL4JgXdJaLpPVfn A1DaTPEogywwljuepLC9 LAKrXRIumS64Mp2h eGepGc9qIIKiPBI8BBVy dZRxV8AlxG6sTbPuSZEo OWDtE7JizOJtDMnuQ467 FRtdSlN2XADugbGx M5EgVLNbdJpzCbK8z7E2 Xd0DfTgwkJWaLH5pWhLy EAw1K1BgNmk3WBSgdIcg ED6hgJWnEVghRo6e jHpttPyhOK6uRYEggmli f199SkIgr4dfMUEjgBUd MHqsSLM2W01tf4G5MIWz CDAiZCJ5sCG1uJ8c bGlnbjogbGVmdDsgdmVy gHsrHPauTKoeM114FIMd uEiyZcBHBmr4S5RmTqi7 VETprVryUT8snVFq BIkoRx0coKnkkHlcTM2m XDIsobhiu881YuHtl5kz XKIkqLCtKFgmAZI1L77s h5T9UOQmJZHoMOJ4 dDY2jP4iaBghzobdiVPv dDsgdmVydGljYWwtYWxp V574GPIseLxxKe2MJym1 Z5OvAkr2YFTdcVcf GF0flYBbHXulQk1whRre eLyeMP7jVHYcirrpl000 CiWnx7aaWZPjaQUgBWua QXZ8U42cj5J6DWUk MUZyVMK4mER9iL9dwJcv bjogbGVmdDsgdmVydGlj WUcrKYheO604VSHsmFow PlBheWVyOjwvdGQ+ JN25af41V3KwVrdzAuj4 BOQlNHG2vYU7tX8tFGJe ZHdwn1S8bVY0T7FfkmDu yf9re2dqIAIrKJmp Y29 (more content not included)... [facility] Progress Note - Nurseon 02-13 Progress Note - Nurse Pre-op call for 03-06-2024 surgery made. Pt given arrival time of 0700 on 03-06-24. Pt reminded of NPO status after midnight except for any meds that she was instructed to take with sip of water, hibiclens shower, no jewelry or make-up, to bring photo ID and insurance card and walker- pt with understanding. [Electronically Signed on: 03/03/2024 09:43 EDT] June Neely RN [Verified on: 03/03/2024 09:43 EDT] June Neely RN [facility] Miscellaneouson 02-16-2024 Miscellaneous [id number] #1.00OTGTIFF [facility] Outside Recordson 02-15-2024 Outside Records [id number] #1.00OTGTIFF [facility] C MRSA Screenon 02-10-2024 C MRSA Screen Negative [facility] Comment on above: Performed By: #### 1 [id number] ####[facility] (DEFAULT)[address] [place], [place] [id number] Progress Note - Nurseon 01-13 Progress Note - Nurse PAT chart for 03-06-2024 surgery reviewed by anesthesiologist Dr Jimenez on 02-10-2024- no additional orders received. [Electronically Signed on: 02/10/2024 14:41 EDT] June Neely RN [Verified on: 02/10/2024 14:41 EDT] June Neely RN [facility] Provider Orderson 02-10-2024 Provider Orders [id number]# 1.00OTGTIFF [facility] XR Hip - right 3 [facility] Result: February 10, 2024 x-rays AP and lateral of the right hip demonstrate ekrr-qc-blwf with subchondral sclerosis. There is complete loss of the joint space. Impression: Advanced osteoarthritis right hip. Zack Aguilar D.O. [facility] Study observation (narrative) [facility] .Auto Diff 02-09-2024 Auto [place] % 10 % Normal 1-12 [facility] Comment on above: Performed By: #### 1 [id number], [id number], [id number] ####[facility] (DEFAULT)[address] [place] [address] 02274 Baso Abs# 0.0 x10 Normal 0.0-0.2 [facility] Comment on above: Performed By: #### 1 [id number], [id number], [id number] ####[facility] (DEFAULT)[address] [place] [address] 65226 Basophils/100 WBC (Bld) 0.2 % Normal 0.2-2.0 [facility] Comment on above: Performed By: #### 1 [id number], [id number], [id number] ####[facility] (DEFAULT)[address] [place] [address] 64359 Eos Abs# 0.1 x10 Normal 0.0-0.4 [facility] Comment on above: Performed By: #### 1 [id number], [id number], [id number] ####[facility] (DEFAULT)[address] [place] [address] 16318 Eosinophils/100 WBC (Bld) 1.6 % Normal 0.9-4.0 [facility] Comment on above: Performed By: #### 1 [id number], [id number], [id number] ####[facility] (DEFAULT)[address] [place] [address] 52366 Lymph Abs# 2.0 x10 Normal 1.3-2.9 [facility] Comment on above: Performed By: #### 1 [id number], [id number], [id number] ####[facility] (DEFAULT)[address] [place] [address] 52663 Lymphocytes/100 WBC (Bld) 25 % Normal 14-48 [facility] Comment on above: Performed By: #### 1 [id number], [id number], [id number] ####[facility] (DEFAULT)[address] [place] [address] [place] Abs# 0.8 x10 Normal 0.0-0.8 [facility] Comment on above: Performed By: #### 1 [id number], [id number], [id number] ####[facility] (DEFAULT)[address] [place] [address] Neut Abs# 5.3 x10 Normal 1.5-9.2 [facility] Comment on above: Performed By: #### 1 [id number], [id number], [id number] ####[facility] (DEFAULT)[address] [place] [address] Neutrophils/100 WBC (Bld) 64 % Normal 44-88 [facility] Comment on above: Performed By: #### 1 [id number], 8298299, [id number] ####[facility] (DEFAULT)[address] [place] [address] Standardon 02-09-2024 eGFR Non AA >60 Invalid Interpretation Code [facility] Comment on above: Performed By: #### 1 [id number], [id number], [id number] ####[facility] (DEFAULT)[address] [place] [address] eGFR AA >60 Invalid Interpretation Code [facility] Comment on above: Performed By: #### 1 [id number], [id number], [id number] ####[facility] (DEFAULT)[address] [place] [address] Anion gap [Moles/Vol] 9.5 mmol/L Normal 5.0-19.0 [facility] Comment on above: Performed By: #### 1 [id number], [id number], [id number] ####[facility] (DEFAULT)[address] [place] [address] Calcium [Mass/Vol] 9.9 mg/dL Normal 8.9-10.3 [facility] Comment on above: Performed By: #### 1 [id number], [id number], [id number] ####[facility] (DEFAULT)[address] [place] [address], [place] [address] Chloride [Moles/Vol] 100 mmol/L Low 101-111 [facility] Comment on above: Performed By: #### 1 [id number], 4927125, [id number] ####[facility] (DEFAULT)[address] [place] [address] 04171 CO2 [Moles/Vol] 33 mmol/L High 21-32 [facility] Comment on above: Performed By: #### 1 [id number], 5966928, [id number] ####[facility] (DEFAULT)[address] [place] [address] 27481 Creatinine [Mass/Vol] 0.84 mg/dL Normal 0.60-1.30 [facility] Comment on above: Performed By: #### 1 [id number], 4184565, 66050152 ####[facility] (DEFAULT)[address] [place] [address] 16286 Glucose [Mass/Vol] 85.0 mg/dL Normal 74.0-118.0 [facility] Comment on above: Performed By: #### 1 [id number], 7977750, [id number] ####[facility] (DEFAULT)[address] [place] [address] 18793 Osmolality 280 mOsm/L Invalid Interpretation Code [facility] Comment on above: Performed By: #### 1 [id number], 7050405, [id number] ####[facility] (DEFAULT)[address] [place] [address] 90295 Potassium [Moles/Vol] 3.5 mmol/L Low 3.6-5.1 [facility] Comment on above: Performed By: #### 1 [id number], 3267473, 46762922 ####[facility] (DEFAULT)[address] [place] [address] 91140 Sodium [Moles/Vol] 139.0 mmol/L Normal 136.0-144.0 [facility] Comment on above: Performed By: #### 1 [id number], 9347672, 80700380 ####[facility] (DEFAULT)[address] [place] [address] 93818 Urea nitrogen [Mass/Vol] 22 mg/dL Normal 8-26 [facility] Comment on above: Performed By: #### 1 [id number], 3795240, 37630358 ####[facility] (DEFAULT)[address] [place] [address] Urea nitrogen/Creatinine [Mass ratio] 26.1 mg/mg High 4.6-16.2 [facility] Comment on above: Performed By: #### 1 [id number], 0394693, 70907656 ####[facility] (DEFAULT)[address] [place] [address] CBC w/ Auto Diffon 4 Man Diff? Auto Invalid Interpretation Code [facility] Comment on above: Performed By: #### 1 [id number], 1604473, [id number] ####[facility] (DEFAULT)[address] [place] [address] Platelet 274 x10 Normal 138-427 [facility] Comment on above: Performed By: #### 1 [id number], 8885469, 13807925 ####[facility] (DEFAULT)[address] [place] [address] 30335 Platelet mean volume (Bld) [Entitic vol] 7.4 fL Normal 6.3-10.2 [facility] Comment on above: Performed By: #### 1 [id number], 4090395, 14104945 ####[facility] (DEFAULT)[address] [place] [address] 37123 Erythrocyte distribution width (RBC) [Ratio] 12.7 % Normal 11.5-15.0 [facility] Comment on above: Performed By: #### 1 [id number], 7304452, 54319284 ####[facility] (DEFAULT)[address] [place] [address] 78898 Hematocrit (Bld) [Volume fraction] 40.4 % Normal 33.7-40.4 [facility] Comment on above: Performed By: #### 1 [id number], 1939437, 25168588 ####[facility] (DEFAULT)[address] [place] [address] Hemoglobin (Bld) [Mass/Vol] 13.7 g/dL Normal 11.3-15.9 [facility] Comment on above: Performed By: #### 1 [id number], 5574000, 30893979 ####[facility] (DEFAULT)[address] [place] [address] MCH (RBC) [Entitic mass] 34 pg Normal 24-34 [facility] Comment on above: Performed By: #### 1 [id number], 3922071, 63252816 ####[facility] (DEFAULT)[address] [place] [address] 36573 MCHC (RBC) [Mass/Vol] 34 g/dL Normal 26-37 [facility] Comment on above: Performed By: #### 1 [id number], 2779707, 18776826 ####[facility] (DEFAULT)[address] [place] [address] MCV (RBC) [Entitic vol] 100 fL Normal 81-100 [facility] Comment on above: Performed By: #### 1 [id number], 3554890, [id number] ####[facility] (DEFAULT)[address] [place] [address] RBC 4.04 x10 Normal 3.70-5.30 [facility] Comment on above: Performed By: #### 1 [id number], 5049072, 44460046 ####[facility] (DEFAULT)[address] [place] [address] WBC 8.3 x10 Normal 3.5-10.5 [facility] Comment on above: Performed By: #### 1 [id number], 7643027, 02488077 ####[facility] (DEFAULT)[address] [place] [address] 54885 UA w Culture if Ind Standard on 02-09-2024 Breakpoint UA Normal [facility] Comment on above: Performed By: #### 1 [id number] #### [facility] (DEFAULT) [address] [place] [address] 41460 Color (U) Yellow Normal [facility] Comment on above: Performed By: #### 1 [id number] #### [facility] (DEFAULT) [address] [place] [address] Culture? Not Indicated Invalid Interpretation Code [facility] Comment on above: Result Comment: Resu lt created by rule GL_MAGR_ADD_UA_CULT1 Performed By: #### 1 [id number] #### [facility] (DEFAULT) [address] [place] [address] Glucose (U) [Mass/Vol] Negative Normal [facility] Comment on above: Performed By: #### 1 [id number] #### [facility] (DEFAULT) [address] [place] [address] 06656 Ketones Ql (U) Negative Normal [facility] Comment on above: Performed By: #### 1 [id number] #### [facility] (DEFAULT) [address] [place] [address] 04494 Micro? Not Indicated Invalid Interpretation Code [facility] Comment on above: Result Comment: Resu lt created by rule GL_MAGR_ADD_UA_MICRO Performed By: #### 1 [id number] #### [facility] (DEFAULT) [address] [place] [address] UA Bilirubin Negative Normal [facility] Comment on above: Performed By: #### 1 [id number] #### [facility] (DEFAULT) [address] [place] [address] 31818 UA Blood Negative Normal NEGATIVE [facility] Comment on above: Performed By: #### 1 [id number] #### [facility] (DEFAULT) [address] [place] [address] 75523 UA Clarity CLEAR Normal CLEAR [facility] Comment on above: Performed By: #### 1 [id number] #### [facility] (DEFAULT) [address] [place] [address] 67678 UA Leuk Est Negative Normal NEGATIVE [facility] Comment on above: Performed By: #### 1 [id number] #### [facility] (DEFAULT) [address] [place] [address] 93179 UA Nitrite Negative Normal NEGATIVE [facility] Comment on above: Performed By: #### 1 [id number] #### [facility] (DEFAULT) [address] [place] [address] 99584 UA pH 6.0 Normal 5-8 [facility] Comment on above: Performed By: #### 1 [id number] #### [facility] (DEFAULT) [address] [place] [address] 40985 UA Protein Negative Normal NEGATIVE [facility] Comment on above: Performed By: #### 1 [id number] #### [facility] (DEFAULT) [address] [place] [address] 53311 UA Spec Grav 1.025 Normal 1.001-1.035 [facility] Comment on above: Performed By: #### 1 [id number] #### [facility] (DEFAULT) [address] [place] [address] 70272 UA Urobilinogen 0.2 mg/dL Normal 0.2-1.0 [facility] Comment on above: Performed By: #### 1 [id number] #### [facility] (DEFAULT) [address] [place] [address] 38579 Urine Source Clean Catch Normal [facility] Comment on above: Performed By: #### 1 [id number] #### [facility] (DEFAULT) [address] [place] [address] 98138 Outside Recordson 01-26-2024 Outside Records [id number] [facility] [id number] #[facility] Summaryon 01-19-2024 Coding Summary HTMLBase 64 EkixqpfwAAf9oUv+PGhl YWQ+OE4UVZUfO35dsXEh qG2rB3MANRfZLocoAFOJ BNcPDsOrzuHuMI3jjDId ZXJu IC8+ON0bDOLoZfczeINj d6N4oRZ4J46dso8yDJxd gLO1NRLxIpXgttlto2ui yLu3RMxqWhckImNa NMBhpG61OAL8yH93Cw14 wERjjQKaa2ipqOv1GlPp SLYtFEB6nWzxNYqgj5Vb DIRbR75yyVTxd0Z4 IGNvbGxhcHNlOyBlbXB0 nL8pFUpckvuww1anorff Grr4wo60nVIsi5N3qCK1 U3CdfkI8EXLfgKMk NficgZOMrH2mpbhwn7yw agjrTlJnZLKtYEj8QVq2 NFTurNpbGsPrET18RIS8 AGXbvlRgA3ThEWKa uEupTkM7p6S3Ax1TT1RX EhqbT1ZEXEGKNOlkmRY+ FR81pt70S0TpPvkwJlz4 FDMhUGF8iPU8nG4c BTAlMUtis3D9mDQ7P6Um dzOoym4vv9tdFWHeRYtp C77rbRFcw9P2EDRfcTB2 FORzxEisRnQxwJ64 Oyc+RXBwqYahj3MaBegh l9vzw6vbdHg4TqimNGTy uxVmtVzoWLA8k0AvIn6p IFOokBK4wNR0vC2e WjQqHeC3GJpbF323UmHc sVQrKeewG12aT4BigFF+ UXFoKjb7OPBgdYhnBY3a L5XyEMJfmzreqIDx iFugDS4dCNKfpvbyWDZa mB6nOQCjI1t8JsKqWnC8 AGnfD4NaREHcrdzjBn04 lP7pYeBzWcN6INnz S3NtowZ1NJGkgEDuRVbg HJR1V51ew9O4HNArZPVz PJC6rAU4zI0rtPanwbnk bGVmdDsgdmVydGlj UVatMGzgB736NMDpzCnj PkNvZGluZyBEYXRlOiAg MDgvMDcvMjAyNDwvdGQ+ KDHkHMP9rYaeEQLa kHYkRNorQv0bjVtfsZqk ND8eCZGmaxwoRCWilQ8x CZGssAJpsXkyYJ8cIHNw abwlf228DsTiEWF2 RCPihVViN8ImzM5fAkDn HJZyHYSsJ7MotLAgKDai Z072SHniQwZ9NYDjqlZp Y7WbDTCmsRtdCjJ9 k1P6Zn4Vm8QbfnllP6Hp jUCxSnRkTqnhGYf2O6Np PjwvdHI+LC45NRKiOK98 CRk7OQL8rNuuUBnp IWEiY6EcnT4yVgKrZUBn ZGRkOyc+PHRhYmxlIHdp ZHRoPScxMDAlJyBzdHls MP3vCb0aGURnTSHs mLzrvQOtBpEec3dgOQCi RQokKE8loGtcR8MbmVO2 SWLyw2t6Iw33B38sM3Rt dXA+BTFwmJW3mGZ3 cI6tMjPnOfA0EUepB373 UjZshXGaEetjz3ejy0uc fUk0SoX7BZBtefVksNwd TED8f3IvZg29B73c IHdpZHRoPSIxNSUiIHZh lSubmk1vtI9hIo1+PGNv yEE7pUL2uW8tNwMoNgR6 WDqvV210PpEhzCEb Lxqsv8emv2rdlNh8XbRz GDBcjrGvrBeaBLF0x5Nz Uq35P2FcjBkzd5BtErf7 wk49eKTfx0K4dOZ9 N7KoMLRexvtujNIymQhy BH8fGWMfbbttJPMvvH4v TCHdO9p1BwUlAjO6SAah J3LbktM2INRrqCCg PZKztQACvG8vldena8qi isceQgDlWJGeYYi0DOw5 WKUmgCflQkDeNOZ1OsB0 GVG2yYOzoP9bjHjz mqhezO1nBze+YXK3sDVu jOUVTJ1jOnyhsAV+PHRk YYX8xPrxZBipTBFzjA7x XLDqG3j1TmQzDyX2 RWraL5ChpkI1YONgnPKz YUTexACZvY3ecxfmg1lh yauePoBrILExPOa8GZl6 LWFsaWduOiBsZWZ0 DoH0XNL1oAJugM4zmKjp tietmF5kVia+QmlydGgg EZU9XIf7M5ZxVms6YVYe fWrrMN7gxYVlIDvt Or1ouXfzhSywVU5zQSMb aafrb094HgKhr3qxOQWz gJAyJCfdHUA6I16ox8T9 KMTaLWYuSBP2gSK3 zY9odQsxdianrJBnfQce hiNqnArdDZzgGHnkN652 GCEssUvvQhZwKXb8T8Zd Aoh0XAHlkFnaJK2g sQPgIKhyIj3guCipbIun LN3tJHEfaeadq688OqKu g0ixVOQaePXlXJxzCTE1 C26ew1L2HCRqLSHs RKR2rLI7nC2crDhydxgq bGVmdDsgdmVydGljYWwt FEbdR249HMRkuRgsFuUj eZr9O5TqInt4OITw aUimFV0keVOlALzkGw5d iFrblNtcFD2oXARxboag h832JjUhf1zqXYIcpTHw SHpjPVO0R38sy7H2 RXZmFUZqOSB8oNM7hK7l bGlnbjogbGVmdDsgdmVy nErySVnhQAjyS205IXQk cDsnPlBhdGllbnQg PHjvFGw4V6QgYvcjiMC+ HA83WEStQA90gJJoaZOz i4btuVv3WuYvBEZzOUC0 hSfaQQmpl2CyYFEh S30eqINif1Z2UVUlpVtp yFPnAxQwnWS1lD2cBObd ceikk7dupugmSnrna5xb oz36dO97Q37uFMsy ZHRoPSIzMCUiIHZhbGln xk8cpE8rGx0+PGNvbCB3 cQV8vO1kUTJuFcI2JZvc X144HpXntMCdWurm t0fud8lwkWm5OnQ8BQNs mxTdbCwgRVT7a8VmDp25 W87mRIbnQNBcTSAzBJDb ADMwmXsxgv6jrO9m Ii8+NXUyrIN7kKC3zZ8n NkEmQtC1GFkrR692ByKh lOHvKxnkF29sJ8KkoNT+ YYKbRyj5KSTfoHiu XL0soXEfPHvuQq6rVMO3 VmHuMxZxMMsgX9JuLHDt jwavtnzfkFB7GMLaFGJr lU75Zp7icRtaCJFv cXJBgZ3biwifz1etoovo BrNnRPJiPIv6BZa4POMr uQzkTxFnTVA5GhH9QFL4 pBKvoF5voOxorwqs cZ2qY9FxEVLriwpoMc49 nC6xTvUxHdL3SXxhItu+ G9zITyXORWQCQF7IDHMe UzwvdGQ+PHRkIHN0 aZheCNalBAQirC3wIXJj Y0j3GcBlUnW6UNiqR7Yc IEQbunggKo90qS7vSgYt QpH0IUeeC0TkxgK9 YXZpuXNmQWqyUYF5C77l m2R7GKNhFUSfNRI4oKX2 uK0okQrmwtihtKSnwOwd dmVydGljYWwtYWxp Q860QVOqgBbtJuHeVkQ3 BpY3BgS4Z7VaBut9CFNo gHsiIA8hgIDoEEbnFf7a fPjeuJsoSF1qMBDn kwoiUPQbkR9pNVCtdJKw pGcaMM8mPULqnflfq019 CdUkASA6UIJgiXTsZ6Tg lA0vOfPsZFGaOCXm I1TvmMQnROzqO385QLmx TqL0NKSqihLwN6PyXLMz sPhrEaN5g0V0Aj93LCXZ ZWFyczwvdGQ+PHRk KLQ1zHzkNFglXVLieI1i XCVsB7p3JeEoLmW3ZSmk Q8UnZDFqyyafJy49oU0p IjExXnD2BNsfO9Xv itM2COXjjUAmGGawXQD7 U26cz4K7FYLiPSHmMXR9 lIN1sB0ciVvvjcpphJWy dDsgdmVydGljYWwt HUtfU276EOPirMepBmBC TUFMRTwvdGQ+PHRkIHN0 mJkdRQocXWBnpE7gUHMd V8d5MdMiIpY4CHnf A1RcVOPsdygoGr57nM1y VmQaXmT2RShbG7KvqqZ2 MYFvdRGePYagYDF6R71j m9C6SMHjJQRiREQ8 uGV2zZ8cxOgocmyhuLTe dDsgdmVydGljYWwtYWxp H010YXEsgMnkLr4OJI49 IJ31R6JiRcpsmEFq bGU+PHRhYmxlIHdpZHRo VRugLCKlNcOosIzzYV8m Zf6bPUToJUCxrLnujWHk SzTmf2yqGUSqHQqw YW6ewLfkQ5JwqTM7GYDn g2o7Xh02W59oK6PseWW+ SUCcvGI0tSF9aS1yEuCa SjO3FThwE548OcIb jJZiEqmkg4dvy6hqlGu9 IjMwJSIgdmFsaWduPSJ0 b5JmBh50R82rWUrhZDVx PSIyMCUiIHZhbGln tw5sgF2mVi6+PGNvbCB3 uVW7lA0mJiTkAyM6RGrf K199BtJhwGNlZgoiA35e U9HujMT+PHRyPjx0 XTGhqHtxUZ7kgSRvHYog Ci6pMBV7JyReKxLoRScx Y5TkQQJvbqmcliwgyYZ2 HDFzOBJkfH05Nu2q oMyiAj8nJSBnKOV5QHXv sLSyK7ZofQ9eWuYvKXLf UIPfJ8SuoEGiJSpxF386 OAfqRbL7HXRkdiCw J4GpCRYagBbtIaE2c1U8 Jn2RiGiwuUDeAM4vIjSh QNg9E3PzTep0FOBmeTni RA6ffCYlLOwrXx9u rDjzdLajFY2wEXYusidn z800HnBcq6fmZACezDDh TOucTXX4C17rs1Y8MUNz QOKdLLX5mZJ2yM0a bGlnbjogbGVmdDsgdmVy mAiwNKafEMnxJ840KCNd kButYySQZdh1D3YwEtg5 TOBeaKloBN5fgKLc WNmzCf6ndUeeqPxrAA6w VUNxtitwn735PsDme6gk YVWiwDJnBAwzJSJ0V50o q7L4LUUlDQKfBIA0 sZY9sG7dyQkctcjpvENx dDsgdmVydGljYWwtYWxp I016ECZqeLukBs5RDng2 F1HjUgw8AFWuxNeo EN1zlDMfVQbmYo5hpIrg tCdcMG6sTWSmkwllq943 NhLym9nvTSEijCFdXCpn PLG7H71vs6V1GZLe KRYtRRU3dRO9lP5sfAcq bjogbGVmdDsgdmVydGlj TDdcEDdcZ037SCAnbMrj PlBheWVyOjwvdGQ+ FA09wk53E6AeUsigKnm0 RBEsXHP2hHO2bS2dXNEw NDqox8L4gIL7M5PbzcFs ug4pw9obZKRnCEls Y29 (more content not included)... [facility] Reminder Messageson 01-13-20 24 Reminder Messages - From: JUAN WHITE DO To: [facility] Clinical Pool ([facility] [email or web address] Sent: 01/13/2024 10:43:11 EDT ! Show up: 01/13/2024 10:43:11 EDT Subject: Results Follow Up Actions: Call the patient with result(s) Due Date/Time: 01/14/2024 10:41:00 EDT Reminder Comments: severe djd of hip joint . some of the bone may be . probably needs hip replacement. Needs ortho referral Results: Date Result Type Result Name 01/13/2024 10:13 Radiology MRI LE Joint w/o Contrast Right referral order placed, pt notified [facility] Rad - MRI Reporton Rad - MRI Report [id number] Normal [facility] MRI LE Joint w/o Contrast Travis hunt 01-10-2024 MRI LE Joint w/o Contrast Right EXAM: MRI LE Joint w/o Contrast Right REASON FOR EXAM: Right hip pain. TECHNIQUE: Multiplanar, multisequence imaging of the right hip was performed without contrast COMPARISON: No recent relevant imaging available. FINDINGS: Study degraded by motion. On small kocvn-xm-geit imaging of the right hip, the right femur is well seated within the acetabulum. No fracture is identified. There is serpiginous T1 hypointense, heterogeneous T2 hyperintense signal involving the central weightbearing femoral head suspicious for avascular necrosis. Moderate reactive edema involving the femoral head dissipating inferiorly into the proximal femoral diaphysis. Diffuse high-grade chondrosis the femoral acetabular cartilage with reactive subchondral marrow edema involving the acetabulum. Marginal osteophytes are present. Degenerative tearing of the labrum. A moderate size joint effusion with synovitis is present. Mild right gluteal insertional tendinosis without tear. Proximal right hamstring tendinosis with low-grade partial tearing. No high-grade tear. The remaining right hip regional musculature is without muscle strain or tendon tear. A large lkgrb-hs-fgvb imaging, the bone marrow signal is normal. Mild degenerative disc disease of the lower lumbar spine, incompletely characterized. The sacroiliac joints are congruent with joint space narrowing, marginal osteophytes and subchondral marrow edema, left greater than right. The pubic symphysis is congruent with mild to moderate osteoarthritis. The left femur is well seated within the acetabulum without fracture or AVN. No high-grade chondrosis. No joint effusion. Mild left gluteus minimus insertional tendinosis without tear. The remaining left hip regional musculature is unremarkable. Limited evaluation the pelvic viscera is without acute or suspicious abnormality. Colonic diverticulosis is noted. IMPRESSION: 1. Severe right hip osteoarthritis with suspicion of superimposed avascular necrosis involving the central weightbearing femoral head. Joint effusion and synovitis. 2. Mild right gluteal insertional tendinosis without tear. 3. Mild degenerative disc disease of the lower lumbar spine, incompletely characterized. 4. 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 Final Dictated by: Frank Black MD Dictated DT/TM: 01/13/24 10:08 Signed (Electronic Signature): Frank Black MD 01/13/24 10:11 a Technologist: FERNY [facility] Coding Summary.on 08-15-2022 Coding Summary. CD:[id number] Gh0bWw+PGhlYWQ+PE1FV RHcY21lkRPftQ5MI9oRT Z1LVLLFOWIXBY4OBO2jc HV0EZyjS4FgnzAj YluwnEUmAY74ACl7NHP9 qTbaNObzxN8fyNZjD2u6 LrPgTV33rL86OBpxDFWq EyL2OtTicrpzoZPv Z8etMmCeuVFmEqp+PHRh YmxlIHdpZHRoPScxMDAl UdTfgJpdOC9qHn4jYAMh LWNvbGxhcHNlOiBj b6ecCDYrTCkqME6dbBac W2HzlJP3OUYdo9e9Pu98 dHI+LQHdHYY5qSsaPCzd h854YaKwk7ewAUA8 wTDxBFffMSS4S00yh8T7 LFKxFYYdXIN4mGO5oL7o aGayewzsE9OnuAZrMxU0 JFL4aSWktM4aiQcy ppuceS9oJvf+V77DME6Y HNTNYV6YJbv4V8PmFlby dHI+BN84DIEjYU24wHDn vZIxo5tghTl7PmZc RBLwWAQ5wVtuVJfek8Lr ZJEhC60qcDCad2M5SYJf cUeatBWyXxUabDL4fX4e JHudxmbdx9hjfmal Eecuw9wwft27jB20M86v EUezBHWqUAV4EVAiDXGx bEiggj9bqY5tGp9+IDxj x3ckp4avsTq6VyQy NZGdtfFhhWdeFHY1t2Le Yu99Q1VtaFzrc7PaCfv4 dl59aVPtt9C7nOU2OTwu KMCgaF0hKSyrImP7 QXRdIfHexV20dFBhSDrc Yn6pjCqheHddZZ6yMRQa wfdbLWLvdV7uIJBgsDGw lLmcBO0iMBJdyaqd s742ZkWtLMM4GHPrjLFc D1PfgH3cBbYjAKJqDNNw J5MagQTeQLyqR248MGzf MbA4HKUeyuUoM7Rg UPSpvHhgVcD5y5B5Gt7B a1BgqrmaAUF4YLuzDTWb IuK2LpGjNzW7L9SdJgg9 JCFodTeiSF1sM6Fa NCJrdexaurwgnTZ6VQUe AWQctD43pZGmCSrqQk7u d1F3f305JJKpMQCtmG25 Sa9lhTnpDEAdgWYZ wY3gbbvbx6qrhsduZvQq UIVcQBb4ACp1GMLkvXnk RvXqITM4BdM2FGF1yUHz oM6vqBsruacjdH2q Oyc+J88itL1tJLA7VHT1 udgkYXPsbxCnAC08UU52 T9GmHrosbJAgqIT+PGRp sbVtvPvwNC9jFmCf u7pmc9NaZOokW9RtTJPm ZVywEch9GRUyNKM2cLK6 bN0bJWXrAJcle0M0gLQ2 I0CugzWncf8kc8qs WVYpDJkaO18rpGKit5H7 OSGdaBN2MRRrdNkpVhMf xC00Vtj+IKYrzXamp2Pa Vjyxo5kca3fjwBt1 IjMwJSIgdmFsaWduPSJ0 k9KxWi37D26cSHedJPVb VLYsPEEtKGPkaCatke1r nL4vNm2+PGNvbCB3 iDQ4jF2aQDPaDoL4SHoq C181EpCmmJTnFszev2sn a0xnbDc1QnBgDAGvkjFn nYcbASY2k8XjPd15 U35dIImjMCIvGGXzZAUb FXFomEdbgc7nqM6gJe2+ HP5wc1dndc68lY10wYS+ YMFjCFA6aDxmWXyq RACzbE4iBTyyMnN4ZFGu ViLldC91rKCmEByyFh9s vNrbcOguAY5wRTMbnvev c071NoXvz2rsUTQv lTYiHFbeBEV8V48nc8D8 NYGzANEjPEZ7lLU9pT1w bGlnbjogbGVmdDsgdmVy wMznEBueRLceP743 IHRvcDsnPlBhdGllbnQg UfCkVFx0N3DvLqs2HOZb mLlfQH7yrEKcHLaeYf5v tPyywUjkZU2hPDBe ogbpp190UaDyr9bpNRNq uPTcKPtcWIG9B07qn5V8 XAPaTZGlBVR5cXF3fA1h bGlnbjogbGVmdDsg dhWmiXfhXAbcWJqgY022 IHRvcDsnPkJpcnRoIERh aMR8TM89IA70hJUuf0R7 sWW9Y2QuCDIndhiu rfkfuRI2LZFmQXVncL26 Kn6xgKbqWd4sEVNtBEI5 CBInvGNnX0HhnN7tCxLw EIVkNZDcF2KrlXKq PShsR965LRpdYkJ3VRVt grLhC3JwKJLrdUabInX6 w5F3Ik8TG5X9NV91PH56 gKSly6A1lYK6E7Ba IFLeoughsjteoMV2RITr NRAbpZ10Mq9daMlaEf3w ZXSbQKF7PBSndDRmK7Dy jB3wLaEbRQQrLHOi X6MgpCLrSUjeO987GCat SnD6TVFeqfUoD3DvOVXt uUiyWmI4w2U3Wt4VNBi9 HP70II11lZJfu0W1 pVX2K0BkHVWmbzwjplfs aRV7RYEvHZZqmD66Xz2d jIciBs1uRXRpUZS0JAOk lEMgR0LodT8hNdCm GDMgXXAhW7JvqCOnZGcn O697RGsjAfC2HCSokoJp P0MbSVUyjBlyRlW7i8L0 Sv6QLIHoNA76MOT8 gDQ7PB04XQ64C2QoRend dGFibGU+PHRhYmxlIHdp ZHRoPScxMDAlJyBzdHls GF0cXj7cVOFuFSLr qQncvRYtUlNva5onZLNr IVbcWM7alAwrH3YbrEL5 OPWey1h3Uc68G54bZ7Rw dXA+MXQypQC6hTD2 zP4dGdCmPhP7UVruX396 LvEhoZJeDncdk6xlh7gq eTl6LpE7IJDkszOfvMaf JBE1l6StDt15N29h IHdpZHRoPSIxNSUiIHZh nVplyo4uvN0qJb1+PGNv wCP4sKG1nX4ySeAkLrN4 TIlpM464PcAoqIHk Xrsfs4omj9dasJa6SiUd YNWidwJgkZasYZS6o7Dw Yu69U1WiwVmpx9DwGxb3 lj98lAVph7B9wXR3 B3XeTBSmbusylKXoaZre VJ6jSMCygrkhWALcjO9a XMKfX3f3GnGdUcD7GPno Z1QndhD2FCMyhVJy SVfmYOR4H33nd3U8UBRm NYHzXAZ1tMD4mG5lhQci bjogbGVmdDsgdmVydGlj LInxXCpwX055IMUs aQrlLVMwsT0fMUCmeJVm pVuyMA7iZANzfkkkAjoT IPAAUwvgZULLXOrKAR75 GV92yXFvz2X6gNO9 M1HzYOVhfwoohrfctLU4 MQUsZLCrxZ99iZYpQLfj Zs4qp0F4m761DIVjXNVp oV52Ga1rvCfiIZMp qFRXkH2zicrfp0pvaoev IoEePZOeZLh6RAy2ZSFc iXwhTfZpSLY4XgF0QSN1 qHBewX7diZeziuvv lD4fPzc+MTIvMTYvMTk2 MjwvdGQ+XKGiIEU2wNio WSbvTQSddE1cJAWeO8h8 ZzJkYoA1MZmpJ1Hw PXVffstjDo69gT0aDcRg TwM8IDaeS6NeafE0XFTv hWFfAVedOFH0J72rm0Q6 ZEOeVBKoGTT2rIK1 nW2wyLbsgrjocRDmyBqm maIhoZkjXHeiNHzlG928 IHRvcDsnPjYwIFllYXJz SR24IA09pKWfx8W3 pQW0B8HtCIVptwtlyjjv hFG7NOYuNUCzcY57lJDz UTjaOk7zl1R9o243TCEp INSjrZ34Hi5syJgd YSDxuNHCcM5qtgqtc5zd lixsKcMpIOMtSTy3IHa6 IXRciJdfYlZcGWK6HaW9 QWM8tUPjuI4ajYtx cadguX7pYzu+RmVtYWxl JA44EB93kZYcj7P7bGA7 I9VgLHZvqekqhhhtxNR9 NPJqOIDooL75dENk JSisWm8za6M3d686JHEt UTKxdW29Vj2vdNulBAPg oLYGeJ8qjkvcq0oeasot JfMgYGTqACg4UEr5 UTXmoTleVlKfGKP8BeW3 QAZ3gGJhcU0reOuxldio wT2sIgd+M2W6sVB8kQHj dDwvdGQ+OA43dv97 C9YvHfrmPkq4JXUfXBJ9 mES0dA0qNUNzTOqbr1Y7 zBA1S0HlbjYdvr5vf2ht VXMlTCmwW63clEPz i7F4DTMbeXJ5ZRXpbVib YtHzwQ45Lcs+PGNvbGdy r2DxSmgsk7snh4nebSt4 IjMwJSIgdmFsaWdu EXX0p1HtLh11E07mVFln ZHRoPSIzMCUiIHZhbGln yh2cnI1pTk6+PGNvbCB3 uJC4jS0jXrNzUdN2 WRjjV483EqPjnPBdCpgp a7grr1mplSx1JtExPGIn oaSfgAiuJCO2o4CsUd95 X9AdqQaid9NqVvr5 cn24bIHvr2N4xHS3U0Hh CIPopixtlEJyuUyqRV8n SFSujlccVMQzbG6uUMWf K8q5SaJjDsI7IZwp Y4JsgwR7NIIbvGHmMYLp jWRQcV9ygddyl5ausnmm YjGxFJQrTLa8JFr6SSQl eZzuIcYjFZG5RyM5 KVK3nTGvwI8odZtgtlns dO7bLfi+WYb7h5wlqQBk PL7qcWC3KN99XF88iKXo p9J3qUG6A0VjWPSk ykxxsswmfRD8LXOvSXXp qS73Lg4fnMbqCl7lAYZq YGU9NRAlwHPaU2TmtC2a CxIzYHJfWVFqL8Qe qHSqXRkrD250CIlqLjM3 LAElopZzY8KiLDZtnUlf IxY6u5B8Qo7TAE27DB95 HB09wSOvm3U1lEZ0 V9PzNKUbqlcjjmimcAG2 KKYsCJOsaZ69Nh5vwIcq Dt2tANPgDVW7JWSesJAu E3JbyT1qEvDyFRIb KVTrR9SinOQiGMqxK586 KXqhDaY9CQKollLmP9Yy FYKruOguVnX0j6W0Er6I Jz72FK90WQ48cYPk f8B8iOX9H9HhDEIhwowd sqmweRU8COFjNEHpwX40 Km0ljLyeOs6qUIBtAKY9 QQHiuENlZ6OktW8q LbAiSMBiDCBgU1JqpYEl NQwnZ029YBhcZdH6QPXf hgQeZ3AmMFEynUmlGfO9 y1F5Ap8BODhhxxj1 K7CoQvuhaBV+HX42PKJe WB23aTFncSCge8aqkYk7 MmEtUZMmPNT1pWdhPJhk m5EbJMVbJ93ymGIa c2U6 (more content not included)... Normal [facility] XR Hip 2-3 Views Righton XR Hip 2-3 Views Right Exam Date/Time: 08/10/2022 15:28 EST Reason for Exam: pain in right hip Report IMPRESSION: NEGATIVE RIGHT HIP. CLINICAL HISTORY: pain in right hip COMPARISONS: NONE AVAILABLE FINDINGS: AP and lateral view of the right hip were obtained. There is no hip fracture or dislocation. The right hip joint space is well preserved. There are no bone erosions or bone lesions involving the right hip. Ordering Provider: ROWAN BOYD FINAL REPORT Dictated: 08/11/2022 7:26 pm Ubaldo Pemberton MD Signed (Electronic Signature): 08/11/2022 7:26 pm Signed by: Ubaldo Pemberton MD Transcribed by: ANDREAS Technologist: JACINDA Technical Comments Radiation Dose: Ka,r in mGy = n/a DAP = n/a [facility] Consent for Treatmenton 02-2 7-2023 Consent for Treatment [id number]:[address] [facility] Physician Orderon 08-10-2022 Physician Order [id number]#[id number]:[address] [facility] ANES POSTPROC EVALon 020 ANES POSTPROC EVAL HNO ID: [id number] Author: Ember Shelton Service: ? Author Type: Anesthesiologist Type: Anesthesia Postprocedure Evaluation Filed: 10/24/2019 3:33 PM Note Text: POST ANESTHESIA EVALUATION NOTE : 1960 Procedure Summary Date: 10/24/19 Room / Location: [place] [address] / OR Anesthesia Start: 1049 Anesthesia Stop: 1525 Procedures: CARPECTOMY, ONE BONE- scaphoid excision (Right Wrist) ARTHRODESIS WRIST- 4 corner fusion (Right Wrist) DECOMPRESSION NERVE MEDIAN CARPAL TUNNEL (Right Wrist) EXCISION GANGLION WRIST (Right Wrist) Diagnosis: SLAC (scapholunate advanced collapse) of wrist CTS (carpal tunnel syndrome) Ganglion of wrist (SLAC (scapholunate advanced collapse) of wrist [M19.139]) (CTS (carpal tunnel syndrome) [G56.00]) (Ganglion of wrist [M67.439]) Surgeon: Paddy Steve Responsible Provider: Ember Shelton Anesthesia Type: MAC, regional ASA Status: 2 Anesthesia Type: MAC, regional Last vitals Vitals Value Taken Time BP 90/48 10/24/2019 3:30 PM Temp 36.6 10/24/2019 3:32 PM Pulse 56 10/24/2019 3:31 PM HR SpO2 57 10/24/2019 3:31 PM Resp 16 10/24/2019 3:32 PM SpO2 100 % 10/24/2019 3:31 PM Vitals shown include unvalidated device data. Post Anesthesia Patient Status Patient Evaluation: bedside. Anticipated Disposition: phase 2 then home. Neurological Status: aware and responsive. Pulmonary Status: breathing comfortably on room air . Airway Control: returned to baseline unsupported. Cardiovascular Status: stable. Pain Management: clinically adequate. Postoperative Hydration: acceptable. Intraoperative Events: no significant anesthesia events Anesthetic Observations: no significant anesthetic observations Recommendation: continue current plan of care. SIGNATURE: Ember Shelton MD PATIENT NAME: Stella WILSON DATE: October 24, 2019 TIME: 3:32 PM CSN: [id number] [facility] ANES PRE-OPon 10-24-2019 ANES PRE-OP HNO ID: [id number] Author: Ember Shelton Service: ? Author Type: Anesthesiologist Type: Anesthesia Preprocedure Evaluation Filed: 10/24/2019 10:46 AM Note Text: ANESTHESIOLOGY DAY OF SURGERY NOTE : 1960 Procedure(s) (LRB): CARPECTOMY, ONE BONE- scaphoid excision (Right) ARTHRODESIS WRIST- 4 corner fusion (Right) DECOMPRESSION NERVE MEDIAN CARPAL TUNNEL (Right) EXCISION GANGLION WRIST (Right) Surgeon(s): Paddy Steve Estimated body mass index is 24.3 kg/m? as calculated from the following: Height as of 10/20/19: 165.1 cm (5' 5 ). Weight as of 10/20/19: 66.2 kg (146 lb). Most recent hematocrit and potassium results: Hematocrit 45.3 08/28/2019 Potassium 4.1 08/28/2019 Relevant Problems ENDO (+) Hypothyroidism I - PHYSICAL EVALUATION AIRWAY Patient intubated: No. Tracheostomy tube not present Mallampati: I. TM distance: >3 FB. Neck ROM: full ROM without neurological symptoms. Mouth opening: adequate. Short neck: no. Thick neck: no DENTAL Dental findings: teeth intact. Additional exam findings: no II - ANESTHESIA PLAN ASA Score: 2 Anesthetic Plan: MAC and regional The patient is not a current smoker. NPO Status: adequate Monitoring plan: standard ASA. Postoperative analgesic plan: peripheral nerve block, parenteral or oral opioids and per surgical service. Anesthetic Risks, Benefits, Alternatives, Personnel Discussed. Consent obtained from: patient. Patient / Surrogate agrees to blood products: blood products not planned Significant changes in the patient condition since the History and Physical, not otherwise documented in primary service progress note: no. Potential Anesthesia issues that may suggest increased risk of complications or contractions to planned procedure: none. Vitals Value Taken Time BP 97/59 10/24/2019 9:28 AM Pulse 67 10/24/2019 9:28 AM Resp 16 10/24/2019 9:28 AM Temp 36.7 ?C (98.1 ?F) 10/24/2019 9:28 AM SpO2 95 % 10/24/2019 9:28 AM No current facility-administere d medications on file as of 10/24/2019. Outpatient Medications as of 10/24/2019 Medication Sig - levothyroxine (SYNTHROID) 75 mcg tablet Take 75 mcg by mouth daily before breakfast. - gabapentin (NEURONTIN) 300 mg capsule Take 600 mg by mouth once daily. - duloxetine hcl(CYMBALTA 60 MG CAP) Take 30 mg by mouth twice daily. - MULTIVITAMIN TAB Take one(1) tablet daily. I have interviewed and examined the patient. I have reviewed the medical record and/or the pre-anesthesia evaluation, pertinent labs, and test results. This contains updated information obtained within 48 hours of Surgery/Procedure. SIGNATURE: Ember Shelton MD PATIENT NAME: Stella WILSON DATE: October 24, 2019 TIME: 10:45 AM CSN: [id number] [facility] BRIEF OP NOTon 10-24-2019 BRIEF OP NOT HNO ID: [id number] Author: Jnenifer Frias Service: Orthopaedic Surgery Author Type: Resident Type: Brief Op Note Filed: 10/24/2019 3:26 PM Note Text: BRIEF OP NOTE LOG ID: [id number] Surgery/Procedure Date: 10/24/2019 Incision/Procedure Start Time: 12:52 PM Incision Close/Procedure End Time: 3:03 PM Surgeon(s)/Procedura list(s) and Senior Sql Server Database Developer(s): Surgeon(s) and Role: * Paddy Steve - Primary * Jennifer Frias - Assisting * Mary Garcia - Assisting * Devin Walter (Fel) - Fellow Procedure(s): right CTR, volar ganglion cyst excision, scaphoid excision and 4 corner fusion Anesthesia: Block Regional - Extremity Upper Findings: as expected Estimated Blood Loss: 5 mls Specimens: None Complications: None Pre-Op/Pre-Procedure Diagnosis: right carpal tunnel syndrome, volar ganglion cyst and SL arthritis Post-Op/Post-Procedu re Diagnosis: * No post-op diagnosis entered * SIGNATURE: Jennifer Frias MD PATIENT NAME: Stella WILSON DATE: October 24, 2019 TIME: 3:25 PM PAGER/CONTACT #: [facility] NURSING PR[facility] 10-24-2019 [id number] Author: Melia RamirezRn) POLO Tran Service: ? Author Type: Registered Nurse Type: Nursing Progress Note Filed: 10/24/2019 3:20 PM Note Text: Discharge Status: Patient is Awakening, and is no airway issues. Skin condition was warm and pink. Transported to recovery room via cart with siderails up. Accompanied by service dismantler and resident.. [facility] NURSING PROG HNO ID: [id number] Author: Melia Vela) POLO Tran Service: ? Author Type: Registered Nurse Type: Nursing Progress Note Filed: 10/24/2019 12:46 PM Note Text: Body temperature maintained by maintaining OR room temperature between 68-72 degrees F, providing patient with warm bath blankets, limiting areas of exposure and providing warm irrigation fluid. [facility] NURSING [facility] ID: [id number] Author: Melia Tran RN Service: ? Author Type: Registered Nurse Type: Nursing Progress Note Filed: 10/24/2019 12:47 PM Note Text: Patient transported to the OR via cart, accompanied by RNANNEMARIE. Level of consciousness: Alert and Oriented x 3 Emotional Status:Calm Sensory Impairments: No Language Barrier: No Mobility Impairments: Yes, right arm blocked in preop. Assisted to OR table x4 Addressed any patient concerns regarding consents, OR environment, and anesthetics. [facility] NURSING [facility] ID: [id number] Author: Kady Pop RN Service: Nursing Author Type: Registered Nurse Type: Nursing Progress Note Filed: 10/24/2019 10:38 AM Note Text: Nursing Progress Note Patient Name: Stella WILSON Patient Location: [facility]OPERATING ROOM POOL/[facility]-OR POOL Patient is alert, oriented, Denies pain at this time. Moves right fingers freely. Safety maintained. This note was completed by: Kady Pop RN [facility] OPERATIVE NOon 10-24-2019 OPERATIVE NO HNO ID: [id number] Author: Paddy Steve Service: Orthopaedic Surgery Author Type: Physician Type: Operative Report Filed: 10/27/2019 3:46 PM Note Text: ORTHOPAEDIC SURGERY OPERATIVE REPORT Patient Name: Stella WILSON Log ID: [id number] Surgery Date: 10/24/2019 Start Time: 12:52 PM Stop Time: 3:03 PM Pre-Op Diagnosis: RIGHT SLAC (scapholunate advanced collapse) of wrist RIGHT CTS (carpal tunnel syndrome) RIGHT Volar ganglion cyst of wrist Post-Op Diagnosis: RIGHT SLAC (scapholunate advanced collapse) of wrist RIGHT CTS (carpal tunnel syndrome) RIGHT Volar ganglion cyst of wrist Operation: RIGHT scaphoid excision with partial wrist (4-corner) arthrodesis with bone autograft RIGHT carpal tunnel release RIGHT volar wrist ganglion cyst excision Excision of the posterior interosseous nerve at the RIGHT wrist Anesthesia: Block Regional - Extremity Upper Surgeon: Paddy Steve MD PhD Assistants: * Jennifer Frias - Assisting * Mary Garcia - Assisting Estimated Blood Loss: 25 mL Tourniquet Time: 116 minutes Fluids: See anesthesia records UOP: Not monitored Implants: 2 Integra arthrodesis janessa (10mm x 10mm legs) Drain: None Specimen: Volar ganglion cyst Final Pathology: Ganglion cyst Operative Indications: The patient is an 59 year old RHD female with a history of chronic pain in her right wrist along with numbness. She underwent a scaphoid excision with 4 corner fusion along with a carpal tunnel release on her left side in [place] about 3 years ago and has done well. She then desired to have the same done for her right wrist as her symptoms were very similar. She also developed a small ganglion cyst over her FCR tendon proximal to the wrist crease that is painful and bothersome to her that she asked to have incised at the same time. After the risks, benefits, and alternatives were discussed, she opted for surgical excision of the volar ganglion cyst, carpal tunnel release, and scaphoid excision with 4 corner fusion. Risks, Benefits, and Alternatives The patient was counseled extensively regarding the options for treatment including operative and non-operative forms of treatment and after thorough counseling has elected to proceed with surgical treatment. The patient was counseled that with surgical treatment there is the possibility that their condition might not improve or may even worsen. No guarantees or warranties were provided regarding the outcome. Specific surgical risks discussed include persistent pain, stiffness, recurrence of the cyst, infection, bleeding, post-operative pain, damage to nerves and blood vessels, wound dehiscence and wound healing problems, incomplete relief of pain, the need for physical/occupationa l therapy, inability to return to their desired level of function, complex regional pain syndrome, as well as medical complications such as anesthetic complications, cardiopulmonary complications and . The patient expressed understanding of all the issues described above and has elected to proceed with the aforementioned procedure. Operative Procedure: In the preoperative holding area, the appropriate surgical site was marked with the patient cognizant. An axillary block was performed by the anesthesiologist in the preop holding area. The patient was identified by the surgical team and a sign-in was performed with all of the pertinent surgical staff including myself, anesthesia and nursing. The patient was then brought to the operating room by the anesthesia team. The patient subsequently was transferred from their bed to the operating table and underwent MAC anesthesia. The patient was then positioned in the supine position and the arm table was attached to the operating room table. All bony prominences were well padded. The operative arm was appropriately identified and prepped. Once the hibiclens prep was completed, the operative extremity was draped in sterile fashion. A surgical time-out was performed. Preoperative antibiotics were verified to have been given within one hour of incision time, prior to incision. The arm was exsanguinated using an Esmarch and the tourniquet was then inflated to 200mmHg. A 2cm longitudinal incision was made in the skin from Brady's cardinal line to the distal wrist flexion crease. This linear incision was then carried down to the palmar fascia which was also incised. Two Samantha retractors were used to retract the skin edges and deep to the palmar fascia. Using gauze and Adson forceps, the fat was swept aside to expose the transverse carpal ligament. A ragnel retractor was used distally. The transverse carpal ligament was sharply incised as ulnar as possible to expose the median nerve. This incision was then carried distally until fat was encountered. Littler scissors were used to spread distally to ensure the TCL was completely resected distally. Attention was then turned proximally and the Ragnel retractor was moved from the distal to the proximal end of the wound. The incision through the TCL was then continued proximally to the wrist flexion crease. Littler scissors were then used above and below the TCL and antebrachial fascia to develop pockets above and below the TCL. The scissors were then turned 90 degrees with one hector of the scissors used deep and one superficial to the TCL to continue releasing the TCL at least 2 cm proximal to the wrist crease. The Ragnel retractor elevated the skin proximally to visually confirm the carpal tunnel was fully released. There was some synovium around the median nerve, but it was no longer constricted. A 1.5cm longitudinal incision was made over the FCR tendon and the ganglion cyst was identified. While circumscribing the cyst bluntly, the cyst popped expelling thick straw-colored gelatinous fluid consistent with the ganglion cyst. The wall of the cyst was then excised and it appeared to be coming from the FCR tendon sheath. Both the carpal tunnel and cyst incisions were then copiously irrigated and then closed with 4-0 nylon suture. A 7cm longitudinal incision was made in the skin just ulnar to Armando's tubercle. Full-thickness skin flaps were elevated. The extensor retinaculum was then incised in a stepwise manner to expose the 2nd through 5th dorsal compartments. The EPL tendon was identified and transposed radially superficial to the retinaculum. In the floor of the 4th compartment, the posterior interosseous nerve was identified and a 1cm segment was excised using the bipolar cautery. A ligament sparing approach to the wrist capsule was then performed exposing the distal and proximal carpal rows. The SL ligament was completely torn and there was significant arthritic changes to the capitate head. The lunate and lunate fossa appeared healthier. We excised the scaphoid en bloc preserving the volar ligaments. We then debrided the sclerotic surface and any remaining cartilage from the mid carpal joint. We used a 0.045in K-wire to drill some holes in the surface to facilitate healing across the mid-carpal joint. The K-wire was then driven across from the capitate to the lunate to position the fusion block. We confirmed the alignment under fluoroscopy. We then morselized the scaphoid to obtain cancellous bone autograft which was packed into the midcarpal space. We then drilled for the staple and inserted one across the capitate-lunate interval and across the hamate-triquetrum interval without complication. We again confirmed alignment under fluoroscopy. The wound was then copiously irrigated and the capsule repaired with 3-0 vicryl. Prior to skin closure, the tourniquet was released and hemostasis was obtained by holding pressure and using bipolar cautery on any visible bleeding vessels. Once hemostasis was verified, closure commenced. The extensor retinaculum was then repaired keeping EPL transposed superficial and radial to Armando's and the retinaculum. The wound was closed with 3-0 vicryl and 4-0 nylon. All counts, verified in 2 separate count episodes, were correct at the end of the case prior to completing skin closure. A sterile dressing comprised of Xeroform, 4x4s, and webril was then applied. The drapes were taken down and a volar short-arm splint was applied and then loosely wrapped with Coban to complete the dressing. The patient was then awoken from their anesthesia and transferred back to the hospital bed from the operating room table; she was then taken to the PACU in stable condition. Attestation of Participation: I performed the procedure with assistance. Plan: 1) Discharge home today 2) Keep dressing on until follow-up 3) Follow-up in 2 weeks for a wound check and transition to a short arm EXOS Barry Steve MD, PhD Hand AND Upper Extremity Orthopaedic Staff Surgeon [facility] PT EDon 10-24-2019 PT ED HNO ID: [id number] Author: Josefa (Rn) POLO Anderson Service: ? Author Type: Registered Nurse Type: Patient Education Filed: 10/24/2019 4:04 PM Note Text: PATIENT EDUCATION TOPIC: PROCEDURE / SURGERY: Post-op Teaching: Discharge instructions PATIENT NAME: Stella WILSON PATIENT LOCATION: -OPERATING ROOM [place]/* READINESS TO LEARN COGNITIVE ABILITY: Alert and oriented MOTIVATION TO LEARN: Interested FAMILY SUPPORT: Unable to assess - Family not present INSTRUCTION PROVIDED TO: Patient PATIENT LEARNS BEST BY: Verbal Instruction FACTORS AFFECTING LEARNING: None PHYSICAL LIMITATIONS AFFECTING LEARNING: None LEARNING RESPONSE DIAGNOSIS: ADULT: PATIENT/FAMILY RESPONSE: Verbalizes understanding of: POST-OPERATIVE INSTRUCTIONS-Correct actions to take to reduce postoperative complications METHOD OF INSTRUCTION: Written instruction - handouts Verbal instruction FOLLOW-UP PLAN: Complete - No need for follow-up INSTRUCTIONAL AIDS USED: NA SUPPLEMENTAL MATERIAL PROVIDED TO PATIENT: None REFERRAL (RECOMMENDATION): None Electronically Signed By: Josefa Anderson RN [facility] PT ED HNO ID: [id number] Author: Josefa (Rn) POLO Anderson Service: ? Author Type: Registered Nurse Type: Patient Education Filed: 10/24/2019 9:42 AM Note Text: PATIENT EDUCATION TOPIC: PROCEDURE / SURGERY: Pre-op Teaching: Logistics Protocols Complication Prevention Surgical Safety Principles PATIENT NAME: Stella WILSON [facility] READINESS TO LEARN COGNITIVE ABILITY: Alert and oriented MOTIVATION TO LEARN: Interested FAMILY SUPPORT: High - Very involved in pt care INSTRUCTION PROVIDED TO: Patient PATIENT LEARNS BEST BY: Verbal Instruction FACTORS AFFECTING LEARNING: None PHYSICAL LIMITATIONS AFFECTING LEARNING: None LEARNING RESPONSE DIAGNOSIS: ADULT: PATIENT/FAMILY RESPONSE: Verbalizes understanding of: PRE-OPERATIVE INSTRUCTIONS-Correct action to take to follow pre-operative instructions METHOD OF INSTRUCTION: Verbal instruction FOLLOW-UP PLAN: Complete - No need for follow-up INSTRUCTIONAL AIDS USED: NA SUPPLEMENTAL MATERIAL PROVIDED TO PATIENT: None REFERRAL (RECOMMENDATION): None Electronically Signed By: Josefa Anderson RN [facility] SURGICAL PATHOLOGYon 020 SURGICAL PATHOLOGY Specimen originated from [facility] Specimen #: [id number] Submitting Physician: PADDY STEVE MD FINAL DIAGNOSIS Soft tissue, right volar, excision - Ganglion cyst. RAJAN/JANICE/sadaf 10/26/2019 Romero Escalante M.D. (Electronic Signature) SPECIMEN SUBMITTED A: RIGHT VOLAR GANGLION CYST CLINICAL DATA SLAC (SCAPHOLUNATE ADVANCED COLLAPSE) OF WRIST; CTS (CARPAL TUNNEL SYNDROME); GANGLION OF WRIST; RIGHT WRIST SCAPHOID EXCISION WITH 4 CORNER FUSION; RIGHT OPEN CARPAL TUNNEL RELEASE; RIGHT VOLAR GANGLION CYST EXCISION; ARTHRITIS RIGHT WRIST WITH CARPAL TUNNEL SYNDROME & RIGHT VOLAR GANGLION CYST GROSS DESCRIPTION A. Received in formalin labeled ganglion cyst is an irregular membranous white-mcgregor tissue fragment measuring 0.4 x 0.2 x 0.2 cm. The specimen is submitted entirely in cassette A1. MELVIN/risa 10/25/2019 Gross examination performed at [facility], [address] [place] [address] Date of Report: 10/27/2019 Date of Procedure: 10/24/2019 Date of Receipt: 10/24/2019 Submitted by: PADDY STEVE MD Location: [facility] Diagnostic interpretation performed at [facility], [address] [place] [address]. CLIA Number: [id number] [facility] XR WRIST 3V PA/LAT/OBL RTon 10-24-2019 XR WRIST 3V PA/LAT/OBL RT * * *Final Report* * * DATE OF EXAM: Oct 24 2019 3:02PM ELVIS [id number] - XR WRIST 3V PA/LAT/OBL RT / PROCEDURE REASON: SLAC (scapholunate advanced collapse) of wrist * * * * Physician Interpretation * * * * History: Right-sided scapholunate advanced collapse Findings: 1 fluoroscopic views submitted. Please see detailed procedural report. Fluoroscopic Radiation Summary: Plane A, Air Kerma: 0.4 mGy Dose Area Product (DAP): 0.0 mGy*cm^2 Fluoro time: 0:23 min:sec Tying In Machine Operator: KESHAWN Transcribe Date/Time: Oct 24 2019 3:07P Dictated by : SIMONE CARTER MD This examination was interpreted and the report reviewed and electronically signed by: SIMONE CARTER MD on Oct 24 2019 3:10PM EST [id number] [facility] HOSPon 10-16-2019 HOSP Patient:Erick WILSON MRN: Height:5' 5 [pt reported height[(1.651 m) Weight:146 lb (66.225 kg) Outpatient Medications as of 10/24/19: levothyroxine (SYNTHROID) 75 mcg tablet gabapentin (NEURONTIN) 300 mg capsule duloxetine hcl(CYMBALTA 60 MG CAP) MULTIVITAMIN TAB Admission/Clinic Administered Medications as of 10/24/19: Patient has no admission medications. Problem List: Carpal tunnel syndrome, right [G56.01] Ganglion cyst of wrist, right [M67.431] Hypothyroidism [E03.9] Allergies: No Known Allergies Date Verified:10/24/19 Lab Values No results within the last 30 days for the following basenames: K,HCT Progress Notes ([facility]): Jasson Lagos MS 10/21/2019 2:31 PM Signed Spoke with patient re: negative COVID results. Discussed strategies to prevent future exposures. Alexa Lagos, MS4 [facility] NURSING PROGon 08-28-2019 NURSING PROG HNO ID: [id number] Author: Cassie (Rn) POLO Porter Service: Nursing Author Type: Registered Nurse Type: Nursing Progress Note Filed: 08/28/2019 9:13 AM Note Text: PACC Nurse Progress Note History AND Physical: PACC Visit Date: 08-28-2019 Original HANDP Date: N/A ED visit Date: N/A Outside HANDP Scanned Date: N/A Labs Within Last 6 Months: CBC: Date 08-28-2019 pending BMP/CMP: Date [id number] Imaging Within Last 12 Months: N/A Cardiac Testing: N/A BMI Percentile (PEDS): N/A Risk Assessment: N/A Anesthesia Review: N/A Narrative: N/A Pre-op Considerations: N/A Chart Check: IN PROGRESS Labs pending Cassie Porter RN August 28, 2019 9:[address] [facility] Vital Signs Date Time Vital Sign Value Performing Clinician Faci cathryn 02-10-2024 11:19-0400 Body height 165.1 cm Carmelo Aguilar DO Work Phone: [facility] 02-10-2024 11:19-0400 Body mass index (BMI) [Ratio] 24.23 kg/m2 Carmelo Aguilar DO Work Phone: [facility] 02-10-2024 11:-0400 Body weight 66.04 kg Carmelo Aguilar DO Work Phone: [facility] Encounters Encounter Date Encounter Type Care Provider Facility Start: 2024 End: 2024 Bamboo flowsheet Carissa Mckinley [employer]ELOPER Work Phone: [facility] Start: 2024 End: 2024 Bamboo [employer] Carissa Ribera Aplherminio [employer] DEVELOPER Work Phone: [facility] Start: 2024 End: 2024 Postop follow up visit related to original px Carissa Mckinley [employer]BEL DEVELOPER Work Phone: [facility] Comment on above: S/P total right hip arthroplasty (Primary Dx); Primary osteoarthritis of right hip Start: 2024 End: 2024 ambulatory CARISSA MCKINLEY Not Available Start: 05-09-2024 End: 05-09-2024 Bamboo flowsheet Debby Wood [employer] DEVELOPER Work Phone: [facility] Start: 05-09-2024 End: 05-09-2024 Bamboo flowsheet Debby Wood [employer]BEL DEVELOPER Work Phone: [facility] Start: 05-09-2024 End: 05-09-2024 ambulatory DEBBY WOOD Not Available Start: 05-09-2024 End: 05-09-2024 Postop follow up visit related to original px Debby Wood [employer] DEVELOPER Work Phone: [facility] Comment on above: S/P total right hip arthroplasty (Primary Dx); Status post closed reduction of dislocated total hip prosthesis Start: 05-02-2024 End: 05-02-2024 Telephone encounter Carmelo Aguilar DO Work Phone: [facility] Comment on above: Return to Work Start: 04-21-2024 End: 04-21-2024 Bamboo flowsheet Carmelo Aguilar DO Work Phone: [facility] Start: 04-21-2024 End: 04-21-2024 Bamboo flowsheet Carmelo Aguilar DO Work Phone: [facility] Start: 04-21-2024 End: 04-21-2024 Postop follow up visit related to original px Carmelo Aguilar DO Work Phone: [facility] Comment on above: S/P total right hip arthroplasty; Primary osteoarthritis of right hip Start: 04-21-2024 End: 04-21-2024 ambulatory CARMELO AGUILAR Not Available Start: 04-18-2024 End: 04-18-2024 Bamboo flowsheet Carmelo Aguilar DO Work Phone: [facility] Start: 04-18-2024 End: 04-18-2024 Bamboo flowsheet Carmelo Aguilar DO Work Phone: [facility] Start: 04-18-2024 End: 04-18-2024 Postop follow up visit related to original px Carmelo Aguilar DO Work Phone: [facility] Comment on above: S/P total right hip arthroplasty; Primary osteoarthritis of right hip Start: 04-18-2024 End: 04-18-2024 ambulatory CARMELO Dejan JEFF Not Available Start: 03-30-2024 End: 03-30-2024 ambulatory DALE MAK Not Available Start: 03-28-2024 End: 03-28-2024 Clinical Support Dale Mak PT Work Phone: [facility] Comment on above: Unilateral primary o steoarthritis, right hip (Primary Dx); Acute postoperative pain of right hip; Difficulty walking; Status post right hip replacement Start: 03-21-2024 End: 03-21-2024 Bamboo flowsheet Carmelo Aguilar DO Work Phone: [facility] Start: 03-21-2024 End: 03-21-2024 Bamboo flowsheet Carmelo Aguilar DO Work Phone: [facility] Start: 03-21-2024 End: 03-21-2024 ambulatory CARMELO AGUILAR Not Available Start: 03-21-2024 End: 03-21-2024 Postop follow up visit related to original px Carmelo Aguilar DO Work Phone: [facility] Comment on above: S/P total right hip arthroplasty (Primary Dx) Start: 03-19-2024 End: 03-19-2024 ambulatory DALE MAK Not Available Start: 03-17-2024 End: 03-17-2024 Clinical Support Dale Mak PT Work Phone: [facility] Comment on above: Unilateral primary o steoarthritis, right hip (Primary Dx); Acute postoperative pain of right hip; Difficulty walking; Status post right hip replacement Start: 03-14-2024 End: 03-14-2024 Postop follow up visit related to original px Carmelo Aguilar DO Work Phone: [facility] Comment on above: S/P total right hip arthroplasty (Primary Dx) Start: 03-14-2024 End: 03-14-2024 ambulatory CARMELO AGUILAR Not Available Start: 03-13-2024 End: 03-13-2024 Clinical Support Dale Mak PT Work Phone: [facility] Comment on above: Unilateral primary o steoarthritis, right hip (Primary Dx); Acute postoperative pain of right hip; Difficulty walking; Status post right hip replacement Start: 03-10-2024 End: 03-10-2024 Clinical Support Dale Mak PT Work Phone: [facility] Comment on above: Unilateral primary o steoarthritis, right hip (Primary Dx); Acute postoperative pain of right hip; Difficulty walking; Status post right hip replacement Start: 03-08-2024 End: 03-08-2024 Clinical Support Dale Mak PT Work Phone: [facility] Comment on above: Unilateral primary o steoarthritis, right hip (Primary Dx); Acute postoperative pain of right hip; Difficulty walking; Status post right hip replacement Start: 03-06-2024 End: 03-07-2024 ambulatory [facility] Facility:[facility] Comment on above: Primary osteoarthrit is of right hip (Primary Dx) Start: 03-03-2024 End: 03-03-2024 Refill Debby Wood [employer]BEL DEVELOPER Work Phone: [facility] Comment on above: Post-operative pain (Primary Dx) Start: 02-15-2024 End: 02-15-2024 ambulatory DO JUAN P CINDY Facility:[facility] Start: 02-10-2024 End: 02-10-2024 Bamboo flowsheet Debby Wood [employer]BEL DEVELOPER Work Phone: [facility] Start: 02-10-2024 End: 02-10-2024 Bamboo flowsheet Debby Wood [employer]BEL DEVELOPER Work Phone: [facility] Start: 02-10-2024 End: 02-10-2024 Office outpatient visit 40 minutes Carmelo Aguilar DO Work Phone: [facility] Comment on above: Primary osteoarthrit is of right hip; Chronic right hip pain Start: 02-10-2024 End: 02-10-2024 ambulatory CARMELO AGUILAR Not Available Start: 02-09-2024 End: 02-09-2024 ambulatory [facility] Facility:[facility] Start: 01-27-2024 End: 01-27-2024 ambulatory MILADIS LICEA Not Available Start: 01-25-2024 End: 01-25-2024 ambulatory CARMELO AGUILAR Not Available Start: 01-10-2024 End: 01-10-2024 ambulatory DO JUAN WHITE Facility:[facility] Start: 12-27-2023 End: 12-27-2023 ambulatory DO JUAN P CINDY Facility:[facility] Start: 12-23-2023 ambulatory DO JUAN P CINDY Faci lity:[facility] Start: 08-02-2023 End: 08-02-2023 ambulatory DO JUAN WHITE Facility:[facility] Start: 08-10-2022 End: 08-11-2022 ambulatory ROWAN G DEB Facility:[facility] Start: 08-10-2022 End: 08-10-2022 Patient encounter procedure ROWAN BOYD [facility] Procedures Date Procedure Procedure Detail Performing Clinician Start: 2024 Radex hip unilateral with pelvis 2-3 views Carissa Mckinley NP Work Phone: Start: 04-21-2024 Radex hip unilateral with pelvis 2-3 views Carmelo Aguilar DO Work Phone: Start: 02-10-2024 Radex hip unilateral with pelvis 2-3 views Carmelo Aguilar DO Work Phone: H/O: surgery Status post clos ed reduction of dislocated total hip prosthesis Debby Wood [employer]BEL DEVELOPER Work Phone: Plan of Treatment Date Care Activity Detail Author Start: 06-26-2024 End: 06-26-2024 Patient encounter procedure 06/26/2024 11:45 AM EST Office Visit [facility] [address] [place] [address] Carissa Mckinley NP [address] [place] [address] [facility] Start: 05-31-2024 End: 05-31-2024 Patient encounter procedure 05/31/2024 1:45 PM EST Office Visit [facility] [address] [place] [address] Carissa Mckinley NP [address] [place] [address] [facility] Start: 2024 End: 2024 Patient encounter procedure 2024 1:00 PM EST Office Visit [facility] [address] [place] [address] Carissa Mckinley, SIEBEL DEVELOPER [address] [facility] [address] [place] [address] S/P total right hip arthroplasty (Primary Dx); Primary osteoarthritis of right hip [facility] Comment on above: S/P total right hip arthroplasty (Primary Dx); Primary osteoarthritis of right hip Start: 05-09-2024 End: 05-09-2024 Patient encounter procedure 05/09/2024 9:30 AM EST Office Visit [facility] [address] [facility] [address] [place] [address] Debby Wood, SANGEETHA [address] [place] [address] [facility] Start: 04-21-2024 End: 04-21-2024 Patient encounter procedure 04/21/2024 9:30 AM EST Office Visit [facility] [address] [place] [address] Carmelo Aguilar, DO [address] [facility] [address] [place] [address] S/P total right hip arthroplasty; Primary osteoarthritis of right hip [facility] Comment on above: S/P total right hip arthroplasty; Primary osteoarthritis of right hip Start: 04-18-2024 End: 04-18-2024 Patient encounter procedure [facility] Comment on above: S/P total right hip arthroplasty; Primary osteoarthritis of right hip Start: 03-21-2024 End: 03-21-2024 Patient encounter procedure 03/21/2024 10:30 AM EDT Office Visit [facility] [address] [facility] [address] [place] [address] Carmelo Aguilar, DO [address] [place] [address] [facility] Start: 03-14-2024 End: 03-14-2024 Patient encounter procedure 03/14/2024 10:15 AM EDT Office Visit [facility] [address] [place] [address] Carmelo Aguilar, DO [address] [place] [address] [facility] Start: 03-06-2024 End: 03-06-2024 Patient encounter procedure 03/06/2024 7:30 AM EDT Procedure Visit [facility] Carmelo Aguilar, DO [address] [place] [address] [facility] Start: 02-10-2024 End: 02-10-2024 Patient encounter procedure 02/10/2024 11:15 AM EDT Office Visit [facility] [address] [facility] [place] [address] Debby Wood, S[employer]BEL DEVELOPER [address] [place], [place] [id number] Primary osteoarthritis of right hip; Chronic right hip pain [facility] Comment on above: Primary osteoarthrit is of right hip; Chronic right hip pain Immunizations Immunization Date Immunization Notes Care Provider [facility] 04-12-2023 RSV, recombinant, protein subunit RSVpreF, adjuvant reconstitu, 120mcg/0.5mL, PF (Arexvy) Debby Wood [employer]BEL DEVELOPER Work Phone: [facility] 02-05-2023 influenza, injectabl e, quadrivalent, preservative free Debby Wood SIEBEL DEVELOPER Work Phone: [facility] 03-23-2022 influenza, injectabl e, quadrivalent, preservative free Debby Wood SIEBEL DEVELOPER Work Phone: [facility] 05-06-2020 zoster vaccine recombinant Carmelo Aguilar DO Work Phone: [facility] 03-06-2020 zoster vaccine recombinant Carmelo Aguilar DO Work Phone: [facility] 02-25-2020 influenza, injectabl e, quadrivalent, preservative free Debby Wood SIEBEL DEVELOPER Work Phone: [facility] 02-21-2018 influenza, injectabl e, quadrivalent, preservative free Debby Wood SIEBEL DEVELOPER Work Phone: [facility] 03-21-2017 influenza, injectabl e, quadrivalent, contains preservative Debby Wood SIEBEL DEVELOPER Work Phone: [facility] 03-24-2015 influenza, injectabl e, quadrivalent, contains preservative Debby Wood SIEBEL DEVELOPER Work Phone: [facility] 03-24-2015 influenza, seasonal, injectable Debby Wood SIEBEL DEVELOPER Work Phone: [facility] 03-05-2014 influenza, injectabl e, quadrivalent, contains preservative Debby Wood SIEBEL DEVELOPER Work Phone: [facility] Payers Date Payer Category Payer Private Health Insurance [id number] 2023 Unknown [id number] 2023 Unknown [id number] 2022 Unknown [id number] 1962 Unknown [id number] 2.16.8 40.1.805555.3.579.2.727 1962 Unknown [id number] 2.16.8 40.1.158087.3.579.2.718 1962 Unknown [id number] 2.16.8 40.1.069771.3.579.2.718 1962 Unknown [id number] 2.16.8 40.1.908040.3.579.2.718 1962 Unknown [id number] 2.16.8 40.1.121704.3.579.2.718 1962 Unknown [id number] 2.16.8 40.1.562509.3.579.2.718 1962 Unknown [id number] 2.16.8 40.1.945148.3.579.2.718 1962 Unknown [id number] 2.16.8 40.1.653259.3.579.2.8 1962 Unknown [id number] 2.16.84 0.1.560243.3.579.2.1259 1962 Unknown [id number] 2.16.84 0.1.310748.3.579.2.1259 1962 Unknown [id number] 2.16.84 0.1.686563.3.579.2.1258 1962 Unknown [id number] 2.16.84 0.1.194555.3.579.2.9 1962 Unknown [id number] 2.16.84 0.1.174364.3.579.2.9 1962 Unknown [id number] 2.16.84 0.1.620908.3.579.2.1259 1962 Unknown [id number] 2.16.84 0.1.848744.3.579.2.9 1962 Unknown [id number] 2.16.84 0.1.234771.3.579.2.1259 1962 Unknown [id number] 2.16.84 0.1.736488.3.579.2.1259 1962 Unknown [id number] 2.16.84 0.1.865690.3.579.2.1259 1962 Unknown [id number] 2.16.84 0.1.784867.3.579.2.1259 1962 Unknown [id number] 2.16.84 0.1.673829.3.579.2.1259 1962 Unknown [id number] 2.16.84 0.1.878749.3.579.2.1259 1962 Unknown [id number] 2.16.84 0.1.676941.3.579.2.1259 1962 Unknown [id number] 2.16.84 0.1.131726.3.579.2.1259 Social History Date Type Detail Facility Tobacco smoking status [facility] Start: 02-10-2024 End: 2024 Sex Assigned At Female [facility] Start: 01-25-2024 Tobacco smoking stat [facility] Ex-smoker [facility] History of tobacco use Current smoker [facility] History of tobacco use Cigarette Smoker [facility] Start: 01-25-2024 Tobacco use and exposure Smokeless tobacco non-user [facility] Start: 03-09-2024 End: 2024 Alcoholic beverage intake Current drinker of alcohol (finding) [facility] Start: 03-09-2024 End: 2024 Alcoholic beverage intake [facility] Start: 1960 Sex assigned at Not on file [facility] Clinical Notes 12-14-2023 to 2024 Carissa Mckinley NP - 2024 1:00 PM ESTDebby Wodo NP - 05/09/2024 9:30 AM ESTTelephone Encounter - Janett Ray - 05/02/2024 11:18 AM ESTTelephone Encounter - Janett Ray - 05/02/2024 11:18 AM EST Note Date & Type Note Facility 2024 History of Presen t illness Narrative Images from the original note were not included. Subjective Patient ID: Stella Wilson is a 64 y.o. female. RT hip: 5 weeks and 4 days s/p hip dislocation, [facility] 04/20/24. She notes that her RT leg gave out and she fell. She had pain from the hip to the knee. After post reduction pain improved. 12 weeks s/p ANTERIOR RT SAMANTHA 03/06/24. Walking well unassisted. Will have stinging pain lateral and posterior hip. Taking TYL. Denies topicals. Admits numbness in thigh. States she feels like her hip shifts. She is very cautious. Feels like it will give out when it shifts. Wakes at HS if she turns on that hip. Denies issues with incision. Pain is 3/10 today. Walks a lot at work. Has RTW with restrictions; no lifting, pushing pulling more than 20lbs, no bending past 90 degrees and must be able to take a 5 min break every hour Objective Right Hip Exam Muscle Strength Adduction: 4-/5 Left Hip Exam Muscle Strength Adduction: 4/5 Hip Musculoskeletal Exam Gait Limp: right Range of Motion Right Active ROM: no pain. Passive ROM: no pain. Strength Right Flexion: 4-/5. Adduction: 4-/5. Abduction: 4-/5. Left Flexion: 4/5. Adduction: 4/5. Abduction: 4/5. Neurovascular Right Posterior tibial: 2+ XR hip right 2 or 3 views Imaging Result: AP and lateral of right hip showed acceptable position and alignment of right total hip arthroplasty. There was no evidence of loosening of the acetabular cup or femoral stem. Femoral head was well centered in the acetabular liner without evidence of asymmetric or accelerated wear. There was no gross evidence of fracture and/or dislocation. Impression: Unremarkable right total hip arthroplasty. Assessment/Plan Encounter Diagnoses: ICD-10-CM 1. S/P total right hip arthroplasty Z96.641 2. Primary osteoarthritis of right hip M16.11 XR hip right 2 or 3 views Continue with current restrictions for another 1 month, f/U in 4 weeks, depending on how she is doing may recommend therapy or will continue to monitor, documented in this encounter [facility] 05-15-2024 Note Entered by SANDRO WHITE DO on May 15, 2024 07:36:04 EST From: JUAN WHITE DO To: [facility] Sent: 05/15/2024 07:36:04 EST Subject: Medication Management Submitted: Complete:amitriptyline (amitriptyline 50 mg oral tablet) Signed by JUAN WHITE DO 05/15/2024 07:36:00 EST Approved amitriptyline (amitriptyline 50 mg tablet) TAKE 1 TABLET BY MOUTH EVERY DAY AT BEDTIME Qty: 30 tab(s) Days Supply: 30 Refills: 2 Substitutions Allowed Route To Pharmacy - [facility] Note from Pharmacy: This prescription was filled on 04/21/2024. Any refills authorized will be placed on file. From: [facility] To: JUAN WHITE DO Sent: May 11, 2024 7:04:55 AM MANAGER OUTREACH Subject: Medication Management Due: May 12, 2024 12:04:57 AM MANAGER OUTREACH On Hold Pending Signature Drug: amitriptyline (amitriptyline 50 mg oral tablet), 1 tab(s) Oral Once a day (at bedtime) Quantity: 30 tab(s) Days Supply: 0 Refills: 1 Substitutions Allowed Notes from Pharmacy: Dispensed Drug: amitriptyline (amitriptyline 50 mg oral tablet), TAKE 1 TABLET BY MOUTH EVERY DAY AT BEDTIME Quantity: 30 tab(s) Days Supply: 30 Refills: 2 Substitutions Allowed Notes from Pharmacy: This prescription was filled on 04/21/2024. Any refills authorized will be placed on file. [facility] 05-09-2024 History of Presen t illness Narrative Images from the original note were not included. Chief Complaint Patient presents with Right Hip - Follow-up HISTORY OF PRESENT ILLNESS: Stella Wilson is an 63 y.o. @ female. RT hip: Pt at [facility] ER 04/20 for hip dislocation. She notes that her RT leg gave out and she fell. She had pain from the hip to the knee. After post reduction pain improved. 9 weeks 1 day s/p ANTERIOR RT SAMANTHA 03/06/24. Walking FWB, unassisted. Notes quad tenderness. Denies issues with incision. Would like to return to work. Continues off work. ALLERGIES: No Known Allergies HOME MEDICATIONS: Current Outpatient Medications Medication Instructions amitriptyline (ELAVIL) 50 mg, Nightly diclofenac (VOLTAREN) 75 mg, 2 times daily DULoxetine (CYMBALTA) 60 mg, 2 times daily levothyroxine (SYNTHROID, LEVOXYL) 75 mcg, Daily before breakfast piroxicam (FELDENE) 10 mg REVIEW OF SYSTEMS: General: Denies fever, fatigue or weight loss Skin: Denies rash, sores or skin changes Eyes: Denies visual disturbance or pain GI: Denies indigestion or abdominal pain Neuro: Denies numbness or tingling, denies new onset paralysis Musculoskeletal: ( see note) PHYSICAL EXAM: Right Hip Exam Tenderness Right hip tenderness location: tightness in quad. Range of Motion Flexion: normal External rotation: normal Internal rotation: normal Muscle Strength Abduction: 5/5 Adduction: 5/5 Flexion: 5/5 Other Erythema: absent Scars: present Sensation: normal Pulse: present Vitals: There is no height or weight on file to calculate BMI. IMAGING: ASSESSMENT: ICD-10-CM 1. S/P total right hip arthroplasty Z96.641 2. Status post closed reduction of dislocated total hip prosthesis Z98.890 Procedures PLAN: Patient states that she is doing better since dislocation but still has some quad tenderness. I educated patient to avoid crossing legs, bending past 90 degrees and going into terminal external rotation. She will return to work on 05/18 with restiction of no lifting, pushing pulling more than 20lbs, no bending past 90 degrees and must be able to take a 5 min break every hour. She will follow up in 1 month for RCK. I educated patient that if she re-dislocates again she will need to see hip specialist for evaluation and possible revision. Questions answered in laymen terms at the bedside. The diagnosis, home exercise plan and any ongoing restrictions/ recommendations reviewed. If unable to be reached in office, I recommend evaluation at nearest Emergency Room if any symptoms worsened or new symptoms develop for requiring urgent evaluation. Debby Wood PLANT OPERATOR HELPER-AUTOMATION TECHNICIAN documented in this encounter [facility] 05-02-2024 Telephone encounter Note Pt called and left vm stating she had RT SAMANTHA on 03/06/24 and she would like a Dr note to return to work back by 05/18/24. She asked if she could be light duty for awhile also? We do not see any FMLA paperwork in pt chart , there is one work note sending her back on 05/29/24. Pt last office visit was in [place] on 04/21/24 with no updated work note. [facility] 05-02-2024 Miscellaneous Notes Pt called and left vm stating she had RT SAMANTHA on 03/06/24 and she would like a Dr note to return to work back by 05/18/24. She asked if she could be light duty for awhile also? We do not see any FMLA paperwork in pt chart , there is one work note sending her back on 05/29/24. Pt last office visit was in [place] on 04/21/24 with no updated work note. documented in this encounter [facility] 04-21-2024 History of Presen t illness Narrative Images from the original note were not included. HISTORY OF PRESENT ILLNESS: Stella Wilson is an 63 y.o. @ female. S/p RT SAMANTHA RT hip: unscheduled visit. Pt at [facility] ER 04/20 for hip dislocation. She notes that her RT leg gave out and she fell. She had pain from the hip to the knee. After post reduction pain improved. 6 1/2 weeks s/p ANTERIOR RT SAMANTHA 03/06/24. Walking FWB with cane today. Pain in her RT buttock, constant since yesterday. Occas groin pain. Taking TYL prn. Incision well healed. Completed home P.T. She has noted a scab to proximal incision that has not wanted to come off. Pt is happy she had surgery. MEDICATION: Current Outpatient Medications on File Prior to Visit Medication Sig Dispense Refill amitriptyline (Elavil) 50 MG tablet Take 50 mg by mouth at bedtime diclofenac (Voltaren) 75 MG EC tablet Take 75 mg by mouth in the morning and 75 mg before bedtime. DULoxetine (Cymbalta) [address] capsule Take 60 mg by mouth in the morning and 60 mg before bedtime. levothyroxine (Synthroid, Levoxyl) 75 MCG tablet Take 75 mcg by mouth in the morning. Take before meals. piroxicam (Feldene) 10 MG capsule 10 mg No current facility-administered medications on file prior to visit. MEDICAL HISTORY: Past Medical History: Diagnosis Date Arthritis Chronic neck pain Depression (CMS/HCC) Hypothyroid (CMS/HCC) ALLERGIES: No Known Allergies VITALS: Visit Vitals Smoking Status Former PHYSICAL EXAM: Ortho Exam RIGHT HIP Ambulating with cane but can walk without cane Painless passive ROM No obvious instability IMAGING: XR hip right 2 or 3 views Imaging Result: April 21, 2024 x-rays AP and lateral of the right hip demonstrate a Press-Fit hip replacement in good position alignment. There are no signs of loosening or fracture or failure. Hip version and orientation appears anatomic Impression: Stable appearing hip anatomically status post hip replacement and subsequent dislocation and relocation Zack Aguilar D.O. ASSESSMENT: ICD-10-CM 1. S/P total right hip arthroplasty Z96.641 2. Primary osteoarthritis of right hip M16.11 XR hip right 2 or 3 views PLAN: I discussed restrictions and expectations. I cautioned on dislocation precautions and if she has further issues with instablity she may need a revision. I answered all of the patient's questions. She will keep her regular scheduled appointment. Any issues/concerns follow up sooner. Dr. Aguilar obtained history and examined the patient, I am acting as scribe for Dr. Aguilar/marin Aguilar D.O. documented in this encounter [facility] 04-18-2024 History of Presen t illness Narrative Images from the original note were not included. HISTORY OF PRESENT ILLNESS: Stella Wilson is an 63 y.o. @ female. Follow up RT SAMANTHA RT hip: 6 weeks s/p ANTERIOR RT SAMANTHA 03/06/24. Ambulating well unassisted. Walking well today unassisted. Some pain in her RT buttock with prolonged walking. Occas groin pain. Taking TYL prn. Incision well healed. Completed home PT. She has noted a scab to proximal incision that has not wanted to come off, she did remove it the other day. Pt is happy she had surgery. MEDICATION: Current Outpatient Medications on File Prior to Visit Medication Sig Dispense Refill amitriptyline (Elavil) 50 MG tablet Take 50 mg by mouth at bedtime diclofenac (Voltaren) 75 MG EC tablet Take 75 mg by mouth in the morning and 75 mg before bedtime. DULoxetine (Cymbalta) [address] capsule Take 60 mg by mouth in the morning and 60 mg before bedtime. levothyroxine (Synthroid, Levoxyl) 75 MCG tablet Take 75 mcg by mouth in the morning. Take before meals. piroxicam (Feldene) 10 MG capsule 10 mg No current facility-administered medications on file prior to visit. MEDICAL HISTORY: Past Medical History: Diagnosis Date Arthritis Chronic neck pain Depression (CMS/HCC) Hypothyroid (CMS/HCC) ALLERGIES: No Known Allergies VITALS: Visit Vitals Smoking Status Former PHYSICAL EXAM: Ortho Exam Walking without a cane. Normal appearing gait. Her surgical scar is healing nicely there is no drainage there is no erythema there is no signs of infection. IMAGING: ASSESSMENT: ICD-10-CM 1. S/P total right hip arthroplasty Z96.641 2. Primary osteoarthritis of right hip M16.11 CANCELED: XR hip right 2 or 3 views PLAN: She will follow up in 6 weeks with x-rays I again explained to the patient that her future follow up will be with my bed levels or my partners as I am leaving town she is encouraged to call my office if she has any problems. I explained the diagnosis and reviewed treatment options. I answered all of the patient's questions. Fiordaliza Aguilar D.O. documented in this encounter [facility] 03-28-2024 History of Presen t illness Narrative Physical Therapy Physical Therapy Daily Visit Patient Name: Stella Wilson Today's Date: 03/28/2024 Subjective Current Problem: Pt is being seen today for a follow up visit for having a Right SAMANTHA replacement. Date of Surgery: 03/06/24 [facility] Current deficits: Impaired gait with dependence on an AD, impaired AROM, impaired LE strength, post op pain. Visit number 5. Time In: 2:40 pm; Time out: 3:05 pm Total time: 25 minutes [id number] Gait training x 15 minutes [id number] TherEx x 10 minutes Pain Management: The patient is complaining of pain located in the right hip/thigh region. Pain rating 2/10. The pain is improved byice , rest , medications including Tylenol and [place], PRN. The pain is aggravated by bending activity, position change. The pain is described as aching. Precautions: Standard anterior SAMANTHA precautions, WBAT R LE Prior level of function: Ambulation: Severely antalgic gait pattern without use of an AD. Assistive devices: Has FWW, str cane. ADL and IADL: Independent. Home Environment: Patient lives alone on second story apartment with 7-8 steps to enter. Objective Examination Functional Mobility: Bed Mobility: mod indep Sit to Stand: mod indep Stair Negotiation: Supervision Ambulation: Ambulated with reciprocal gait pattern with use of walker; fair heel to toe gait pattern with fair knee flexion with swing phase on right LE. Noted less WB on walker with Ue's. Pt ambulating this date with str cane at mod indep with good two point gait pattern; no LOB or antalgic pattern Hip: Active ROM: Right hip flexion/extension 0 to 90 degrees . Passive ROM: Right hip extension/flexion: 0 to 90 degrees with increased muscle guarding. Manual muscle testing: Right hip 3+/5. Palpation: Normal post-op warmth with minimal edema; Incision covered with ABD dressing and intact with dermaglue; no drainage. Special tests: Negative Emma Sign. Knee: Active ROM: WFL Manual muscle testing: Right knee 3/5. Ankle/Foot: Active ROM WFL. Manual muscle testing: Right ankle 4/5. Special tests Emma's sign Negative. Tinetti Gait and Balance Assessment: Sitting balance: Steady, safe = 1 . Rises from chair: Able, uses arms to help = 1 . Attempts to rise: Able, requires > 1 attempt = 1. Immediate standing balance (first 5 seconds): Steady but uses walker or other support = 1. Standing balance: Steady but uses walker or other support = 1. Nudged: Staggers, grabs, catches self = 1. Eyes closed: Steady = 1 . Turning 360 degrees: Discontinuous steps = 0 Unsteady (grabs, staggers) = 0 . Sitting down: Uses arms or not a smooth motion = 1. Balance Score: 816. Indication of gait: No hesitancy = 1. Step of length and height: Step through L = 1. Foot clearance: L foot clears floor = 1 R foot clears floor = 1. Step symmetry: Right and left step length no equal = 0. Step continuity: Stopping or discontinuity between steps = 0. Path: Mild/moderate deviation or uses w/ aid = 1. Trunk: No sway but flex knees or back or uses arms for stability = 1. Walking time: Heels apart = 0. Gait score: 11/23. Total Score = Balance + Gait . Tinetti tool score: < = 18 High. Physical Education Intervention Physical Therapy Education: Pt was educated on the importance of cyrotherapy and elevation. Reviewed proper pillow placement under LE to maintain good extension. Stressed the importance also of ambulating at at least every other hour for 2-5 minutes duration and/or at least stand for a few minutes and completion of HEP 2x/day. Patient was educated with regards to signs and symptoms to monitor with respect to blood clots and infection. Reviewed SAMANTHA precautions. Therapeutic Exercise : Pt completed right LE supine exercises of glut sets, quad sets and ankle pumps (hourly) at this time, 10x. Completed bilateral LE standing heel raises, right ham curls, mini squats, standing SLR and mini march; added hip abduction 10x. HEP updated and instructed. Gait Training: Gait training this date with str cane this date; demonstrated good two point gait pattern throughout home. Therapeutic Activity: Pt demonstrated all transfers and bed mobility at [facility]. Assessment & Plan Assessment Impairments: abnormal gait, impaired balance, impaired physical strength and pain with function Barriers to therapy: Pain Prognosis: good Goals Short Term goals (1-3 weeks) Goal 1 : Patient will demonstrate good compliance and independence with HEP. Goal 2 : Patient will ascend/descend 7-8 steps with HR and AD with supervision, step to gait pattern. Goal 3 : Patient will ambulate up to 5 minute duration or more with FWW, modified independent with good reciprical gait pattern. Goal 4 : Patient will improve PROM of Right hip from 0 to 90 degrees with pain reported at end range < 2/10. Goal 5 : Pt will demonstrate good SAMANTHA precaution with all functional transfers and bed mobility with independence. Game Attendant Goals (4-6 weeks) Goal 1 : Patient will ambulate community distances on even and uneven surfaces, independently with no AD, normalized gait pattern and < 1/10 report of pain in right hip. Goal 2 : Patient will improve Right hip/knee strength to 5/5 to assist with gait and transfer performances. Goal 3 : Patient will improve Right hip AROM from 0 to 90 degrees with end range pain < 2/10. Goal 4 : Patient will demonstrate good static and dynamic standing balance for >15 mintues without LOB or increase in hip pain. Goal 5 : Pt will ascend/descend 7-8 steps with no AD and reciprical gait pattern independently. Goal 6 : Patient will improve Tinetti Balance test to 28/28 to indicate no fall risk. Plan Planned modality interventions: cryotherapy Planned therapy interventions: gait training, functional ROM exercises, strengthening, stretching, therapeutic activities, neuromuscular re-education, manual therapy, bed mobility training, home exercise program and transfer training Frequency: 2-3. Duration in weeks: 8 Treatment plan discussed with: patient Plan details: Educated patient not to over do it and to continue icing hip; patient receptive. Pt making great progress. Pt to be discharged at this time from In-home PT and will continue with HEP. documented in this encounter [facility] 03-21-2024 History of Presen t illness Narrative Images from the original note were not included. HISTORY OF PRESENT ILLNESS: Stella Wilson is an 63 y.o. @ female. Wound check s/p RT SAMANTHA RT hip: wound check/dressing removal 15 days s/p ANTERIOR RT SAMANTHA 03/06/24. Ambulating well without walker. Some pain in her RT buttock when she walks. Taking TYL. Denies drainage or redness. No longer wearing VINCENT hose. Sore over posterior knee. Getting home PT. Taking ASA 325. Denies fever or chills. Pt is happy she had surgery. MEDICATION: Current Outpatient Medications on File Prior to Visit Medication Sig Dispense Refill amitriptyline (Elavil) 50 MG tablet Take 50 mg by mouth at bedtime diclofenac (Voltaren) 75 MG EC tablet Take 75 mg by mouth in the morning and 75 mg before bedtime. DULoxetine (Cymbalta) [address] capsule Take 60 mg by mouth in the morning and 60 mg before bedtime. levothyroxine (Synthroid, Levoxyl) 75 MCG tablet Take 75 mcg by mouth in the morning. Take before meals. piroxicam (Feldene) 10 MG capsule 10 mg No current facility-administered medications on file prior to visit. MEDICAL HISTORY: Past Medical History: Diagnosis Date Arthritis Chronic neck pain Depression (CMS/HCC) Hypothyroid (CMS/HCC) ALLERGIES: No Known Allergies VITALS: Visit Vitals Smoking Status Former PHYSICAL EXAM: Ortho Exam RIGHT HIP Removed dressing, new dressing applied Ambulating with walker ASSESSMENT: ICD-10-CM 1. S/P total right hip arthroplasty Z96.641 PLAN: Discussed post op restrictions and expectations. She may wean from the walker. I answered all of the patient's questions. Follow up in one month with xrays, any issues/concerns follow up sooner. Dr. Aguilar obtained history and examined the patient, I am acting as scribe for Dr. Aguilar/marin Aguilar D.O. documented in this encounter [facility] 03-17-2024 History of Presen t illness Narrative Physical Therapy Physical Therapy Daily Visit Patient Name: Stella Wilson Today's Date: 03/17/2024 Subjective Current Problem: Pt is being seen today for a follow up visit for having a Right SAMANTHA replacement. Date of Surgery: 03/06/24 with one night stay at [facility] Current deficits: Impaired gait with dependence on an AD, impaired AROM, impaired LE strength, post op pain. Visit number 4. Time In: 11:30 am; Time out: 11:55 am Total time: 25 minutes [id number] Gait training x 15 minutes [id number] TherEx x 10 minutes Pain Management: The patient is complaining of pain located in the right hip/thigh region. Pain rating 2/10. The pain is improved byice , rest , medications including Tylenol and [place], PRN. The pain is aggravated by bending activity, position change. The pain is described as aching. Precautions: Standard anterior SAMANTHA precautions, WBAT R LE Prior level of function: Ambulation: Severely antalgic gait pattern without use of an AD. Assistive devices: Has FWW, str cane. ADL and IADL: Independent. Home Environment: Patient lives alone on second story apartment with 7-8 steps to enter. Objective Examination Functional Mobility: Bed Mobility: Supervision Sit to Stand: Supervision Stair Negotiation: SBA Ambulation: Ambulated with reciprocal gait pattern with use of walker; fair heel to toe gait pattern with fair knee flexion with swing phase on right LE. Noted increase WB on walker with Ue's. Hip: Active ROM: Right hip flexion/extension 0 to 70 degrees . Passive ROM: Right hip extension/flexion: 0 to 75 degrees with increased muscle guarding. Manual muscle testing: Right hip 2+/5. Palpation: Normal post-op warmth with minimal edema; Incision covered with ABD dressing and intact with zip tie sterile strips; no drainage. New AB dressing applied with paper tape. Special tests: Negative Emma Sign. Knee: Active ROM: WFL Manual muscle testing: Right knee 3/5. Ankle/Foot: Active ROM WFL. Manual muscle testing: Right ankle 4/5. Special tests Emma's sign Negative. Tinetti Gait and Balance Assessment: Sitting balance: Steady, safe = 1 . Rises from chair: Able, uses arms to help = 1 . Attempts to rise: Able, requires > 1 attempt = 1. Immediate standing balance (first 5 seconds): Steady but uses walker or other support = 1. Standing balance: Steady but uses walker or other support = 1. Nudged: Staggers, grabs, catches self = 1. Eyes closed: Steady = 1 . Turning 360 degrees: Discontinuous steps = 0 Unsteady (grabs, staggers) = 0 . Sitting down: Uses arms or not a smooth motion = 1. Balance Score: 16. Indication of gait: No hesitancy = 1. Step of length and height: Step through L = 1. Foot clearance: L foot clears floor = 1 R foot clears floor = 1. Step symmetry: Right and left step length no equal = 0. Step continuity: Stopping or discontinuity between steps = 0. Path: Mild/moderate deviation or uses w/ aid = 1. Trunk: No sway but flex knees or back or uses arms for stability = 1. Walking time: Heels apart = 0. Gait score: 6/12. Total Score = Balance + Gait 14/28. Tinetti tool score: < = 18 High. Physical Education Intervention Physical Therapy Education: Pt was educated on the importance of cyrotherapy and elevation. Reviewed proper pillow placement under LE to maintain good extension. Stressed the importance also of ambulating at at least every other hour for 2-5 minutes duration and/or at least stand for a few minutes and completion of HEP 2x/day. Patient was educated with regards to signs and symptoms to monitor with respect to blood clots and infection. Reviewed SAMANTHA precautions. Therapeutic Exercise : Pt completed right LE supine exercises of glut sets, quad sets and ankle pumps (hourly) at this time, 10x. Completed bilateral LE standing heel raises, right ham curls; added mini squats, standing SLR and mini march 10x. HEP updated and instructed. Gait Training: Gait training this date with walker with instruction for reciprocal gait pattern for right affective LE. Verbal cues were provided fot heel to toe gait pattern and knee flexion during swing phase; fair carryover. Worked on stair climbing with folded walker; SBA with step to gait pattern. Therapeutic Activity: Pt demonstrated all transfers and bed mobility at [facility]. Assessment & Plan Assessment Impairments: abnormal gait, impaired balance, impaired physical strength and pain with function Barriers to therapy: Pain Prognosis: good Goals Short Term goals (1-3 weeks) Goal 1 : Patient will demonstrate good compliance and independence with HEP. Goal 2 : Patient will ascend/descend 7-8 steps with HR and AD with supervision, step to gait pattern. Goal 3 : Patient will ambulate up to 5 minute duration or more with FWW, modified independent with good reciprical gait pattern. Goal 4 : Patient will improve PROM of Right hip from 0 to 90 degrees with pain reported at end range < 2/10. Goal 5 : Pt will demonstrate good SAMANTHA precaution with all functional transfers and bed mobility with independence. Usp Goals (4-6 weeks) Goal 1 : Patient will ambulate community distances on even and uneven surfaces, independently with no AD, normalized gait pattern and < 1/10 report of pain in right hip. Goal 2 : Patient will improve Right hip/knee strength to 5/5 to assist with gait and transfer performances. Goal 3 : Patient will improve Right hip AROM from 0 to 90 degrees with end range pain < 2/10. Goal 4 : Patient will demonstrate good static and dynamic standing balance for >15 mintues without LOB or increase in hip pain. Goal 5 : Pt will ascend/descend 7-8 steps with no AD and reciprical gait pattern independently. Goal 6 : Patient will improve Tinetti Balance test to 28/28 to indicate no fall risk. Plan Planned modality interventions: cryotherapy Planned therapy interventions: gait training, functional ROM exercises, strengthening, stretching, therapeutic activities, neuromuscular re-education, manual therapy, bed mobility training, home exercise program and transfer training Frequency: 2-3. Duration in weeks: 8 Treatment plan discussed with: patient Plan details: Educated patient not to over do it and to continue icing hip; patient receptive. Pt making great progress. Will follow up end of next week as needed. documented in this encounter [facility] [facility] 03-14-2024 Note [id number] 03-14-2024 History of Presen t illness Narrative Images from the original note were not included. HISTORY OF PRESENT ILLNESS: Stella Wilson is an 63 y.o. @ female. Follow up RT SAMANTHA RT hip: 1st po 8 days s/p ANTERIOR RT SAMANTHA 03/06/24. Ambulating well with walker. Taking TYL, no longer taking narcotics. Denies drainage or redness, keeps covered with ABD. Wearing VINCENT hose. Tender over incision. Admits burning sting intermittently over anterior thigh. Getting home PT. Taking ASA 325, stopped Fe. Denies fever or chills. Pt is happy she had surgery. MEDICATION: Current Outpatient Medications on File Prior to Visit Medication Sig Dispense Refill amitriptyline (Elavil) 50 MG tablet Take 50 mg by mouth at bedtime diclofenac (Voltaren) 75 MG EC tablet Take 75 mg by mouth in the morning and 75 mg before bedtime. DULoxetine (Cymbalta) [address] capsule Take 60 mg by mouth in the morning and 60 mg before bedtime. [] ferrous sulfate (Fe Tabs) 325 (65 Fe) MG EC tablet Take 1 tablet (325 mg) by mouth in the morning. Take with meals. Do not crush, chew, or split.. 30 tablet 0 [] HYDROcodone-acetaminophen (M[place]field) 10-325 MG tablet Take 1 tablet by mouth every 6 (six) hours if needed for severe pain for up to 5 days 20 tablet 0 levothyroxine (Synthroid, Levoxyl) 75 MCG tablet Take 75 mcg by mouth in the morning. Take before meals. [] oxyCODONE (Roxicodone) 5 MG immediate release tablet Take 1 tablet (5 mg) by mouth every 6 (six) hours if needed for moderate pain for up to 5 days 20 tablet 0 piroxicam (Feldene) 10 MG capsule 10 mg No current facility-administered medications on file prior to visit. MEDICAL HISTORY: Past Medical History: Diagnosis Date Arthritis Chronic neck pain Depression (CMS/HCC) Hypothyroid (CMS/HCC) ALLERGIES: No Known Allergies VITALS: Visit Vitals Smoking Status Former PHYSICAL EXAM: Ortho Exam RIGHT HIP Ambulating with walker Incision healing nicely, dressing clean and intact ASSESSMENT: ICD-10-CM 1. S/P total right hip arthroplasty Z96.641 PLAN: I discussed post op care and recommend cont tedhose and ASA for additional 3 wks Reviewed Hip dislocation precautions. Reminded to hold off non urgent dental appts for 6 months post op- and abx prophylaxis following. She may transition to a cane in 2 weeks. Questions answered in laymen terms at the bedside. The diagnosis, home exercise plan and any ongoing restrictions/ recommendations reviewed. If unable to be reached in office, I recommend evaluation at nearest Emergency Room if any symptoms worsened or new symptoms develop for requiring urgent evaluation. Follow up in one week for removal of dressing, any issues/concerns follow up sooner. Dr. Aguilar obtained history and examined the patient, I am acting as scribe for Dr. Aguilar/marin Aguilar D.O. documented in this encounter [facility] 03-13-2024 History of Presen t illness Narrative Physical Therapy Physical Therapy Daily Visit Patient Name: Stella Wilson Today's Date: 03/13/2024 Subjective Current Problem: Pt is being seen today for a follow up visit for having a Right SAMANTHA replacement. Date of Surgery: 03/06/24 with one night stay at hosptial Current deficits: Impaired gait with dependence on an AD, impaired AROM, impaired LE strength, post op pain. Visit number 3. Time In: 11:00 am; Time out: 11:25 am Total time: 25 minutes [id number] Gait training x 15 minutes [id number] TherEx x 10 minutes Pain Management: The patient is complaining of pain located in the right hip/thigh region. Pain rating 4/10. The pain is improved byice , rest , medications including Tylenol and Mansfield. The pain is aggravated by bending activity, position change. The pain is described as aching. Precautions: Standard anterior SAMANTHA precautions, WBAT R LE Prior level of function: Ambulation: Severely antalgic gait pattern without use of an AD. Assistive devices: Has FWW, str cane. ADL and IADL: Independent. Home Environment: Patient lives alone on second story apartment with 7-8 steps to enter. Objective Examination Functional Mobility: Bed Mobility: SBA Sit to Stand: SBA Stair Negotiation: TBA Ambulation: Ambulated with step to gait pattern with use of walker; fair heel to toe gait pattern with fair knee flexion with swing phase on right LE. Noted increase WB on walker with Ue's. Hip: Active ROM: Right hip flexion/extension 0 to 70 degrees . Passive ROM: Right hip extension/flexion: 0 to 75 degrees with increased muscle guarding. Manual muscle testing: Right hip 2+/5. Palpation: Normal post-op warmth with minimal edema; Incision covered with ABD dressing and intact with zip tie sterile strips; no drainage. New AB dressing applied with paper tape. Special tests: Negative Emma Sign. Knee: Active ROM: WFL Manual muscle testing: Right knee 3/5. Ankle/Foot: Active ROM WFL. Manual muscle testing: Right ankle 4/5. Special tests Emma's sign Negative. Tinetti Gait and Balance Assessment: Sitting balance: Steady, safe = 1 . Rises from chair: Able, uses arms to help = 1 . Attempts to rise: Able, requires > 1 attempt = 1. Immediate standing balance (first 5 seconds): Steady but uses walker or other support = 1. Standing balance: Steady but uses walker or other support = 1. Nudged: Staggers, grabs, catches self = 1. Eyes closed: Steady = 1 . Turning 360 degrees: Discontinuous steps = 0 Unsteady (grabs, staggers) = 0 . Sitting down: Uses arms or not a smooth motion = 1. Balance Score: 01/27. Indication of gait: No hesitancy = 1. Step of length and height: Step through L = 1. Foot clearance: L foot clears floor = 1 R foot clears floor = 1. Step symmetry: Right and left step length no equal = 0. Step continuity: Stopping or discontinuity between steps = 0. Path: Mild/moderate deviation or uses w/ aid = 1. Trunk: No sway but flex knees or back or uses arms for stability = 1. Walking time: Heels apart = 0. Gait score: 11/23. Total Score = Balance + Gait . Tinetti tool score: < = 18 High. Physical Education Intervention Physical Therapy Education: Pt was educated on the importance of cyrotherapy and elevation. Reviewed proper pillow placement under LE to maintain good extension. Stressed the importance also of ambulating at at least every other hour for 2-5 minutes duration and/or at least stand for a few minutes and completion of HEP 2x/day. Patient was educated with regards to signs and symptoms to monitor with respect to blood clots and infection. Reviewed SAMANTHA precautions. Therapeutic Exercise : Pt completed right LE supine exercises of glut sets, quad sets and ankle pumps (hourly) at this time, 10x. Completed bilateral LE standing heel raises, right ham curls 10x. HEP updated and instructed. Gait Training: Gait training this date with walker with instruction for step to gait pattern for right affective LE. Verbal cues were provided fot heel to toe gait pattern and knee flexion during swing phase; fair carryover. Worked on stair climbing with folded walker; SBA with step to gait pattern. Therapeutic Activity: Worked on proper sit to stand, stand to sit transfers this date from recliner good carryover with mod indep with verbal cues for proper sequencing and hand placement. Assessment & Plan Assessment Impairments: abnormal gait, impaired balance, impaired physical strength and pain with function Barriers to therapy: Pain Prognosis: good Goals Short Term goals (1-3 weeks) Goal 1 : Patient will demonstrate good compliance and independence with HEP. Goal 2 : Patient will ascend/descend 7-8 steps with HR and AD with supervision, step to gait pattern. Goal 3 : Patient will ambulate up to 5 minute duration or more with FWW, modified independent with good reciprical gait pattern. Goal 4 : Patient will improve PROM of Right hip from 0 to 90 degrees with pain reported at end range < 2/10. Goal 5 : Pt will demonstrate good SAMANTHA precaution with all functional transfers and bed mobility with independence. Usp Goals (4-6 weeks) Goal 1 : Patient will ambulate community distances on even and uneven surfaces, independently with no AD, normalized gait pattern and < 1/10 report of pain in right hip. Goal 2 : Patient will improve Right hip/knee strength to 5/5 to assist with gait and transfer performances. Goal 3 : Patient will improve Right hip AROM from 0 to 90 degrees with end range pain < 2/10. Goal 4 : Patient will demonstrate good static and dynamic standing balance for >15 mintues without LOB or increase in hip pain. Goal 5 : Pt will ascend/descend 7-8 steps with no AD and reciprical gait pattern independently. Goal 6 : Patient will improve Tinetti Balance test to 28/28 to indicate no fall risk. Plan Planned modality interventions: cryotherapy Planned therapy interventions: gait training, functional ROM exercises, strengthening, stretching, therapeutic activities, neuromuscular re-education, manual therapy, bed mobility training, home exercise program and transfer training Frequency: 2-3. Duration in weeks: 8 Treatment plan discussed with: patient Plan details: Educated patient not to over do it and to continue icing hip; patient receptive. documented in this encounter [facility] 03-10-2024 History of Presen t illness Narrative Physical Therapy Physical Therapy Daily Visit Patient Name: Stella Wilson Today's Date: 03/10/2024 Subjective Current Problem: Pt is being seen today for a follow up visit for having a Right SAMANTHA replacement. Date of Surgery: [facility] Current deficits: Impaired gait with dependence on an AD, impaired AROM, impaired LE strength, post op pain. Visit number 2. Time In: 11:00 am; Time out: 11:25 am Total time: 25 minutes [id number] Gait training x 15 minutes [id number] TherEx x 10 minutes Pain Management: The patient is complaining of pain located in the right hip/thigh region. Pain rating 6410. The pain is improved byice , rest , medications including Tylenol and Mansfield. The pain is aggravated by bending activity, position change. The pain is described as aching. Precautions: Standard anterior SAMANTHA precautions, WBAT R LE Prior level of function: Ambulation: Severely antalgic gait pattern without use of an AD. Assistive devices: Has FWW, str cane. ADL and IADL: Independent. Home Environment: Patient lives alone on second story apartment with 7-8 steps to enter. Objective Examination Functional Mobility: Bed Mobility: SBA Sit to Stand: SBA Stair Negotiation: TBA Ambulation: Ambulated with step to gait pattern with use of walker; fair heel to toe gait pattern with fair knee flexion with swing phase on right LE. Noted increase WB on walker with Ue's. Hip: Active ROM: Right hip flexion/extension 0 to 70 degrees . Passive ROM: Right hip extension/flexion: 0 to 75 degrees with increased muscle guarding. Manual muscle testing: Right hip 2+/5. Palpation: Normal post-op warmth with minimal edema; Incision covered with ABD dressing and intact with zip tie sterile strips; no drainage. New AB dressing applied with paper tape. Special tests: Negative Emma Sign. Knee: Active ROM: WFL Manual muscle testing: Right knee 3/5. Ankle/Foot: Active ROM WFL. Manual muscle testing: Right ankle 4/5. Special tests Emma's sign Negative. Tinetti Gait and Balance Assessment: Sitting balance: Steady, safe = 1 . Rises from chair: Able, uses arms to help = 1 . Attempts to rise: Able, requires > 1 attempt = 1. Immediate standing balance (first 5 seconds): Steady but uses walker or other support = 1. Standing balance: Steady but uses walker or other support = 1. Nudged: Staggers, grabs, catches self = 1. Eyes closed: Steady = 1 . Turning 360 degrees: Discontinuous steps = 0 Unsteady (grabs, staggers) = 0 . Sitting down: Uses arms or not a smooth motion = 1. Balance Score: 8/16. Indication of gait: No hesitancy = 1. Step of length and height: Step through L = 1. Foot clearance: L foot clears floor = 1 R foot clears floor = 1. Step symmetry: Right and left step length no equal = 0. Step continuity: Stopping or discontinuity between steps = 0. Path: Mild/moderate deviation or uses w/ aid = 1. Trunk: No sway but flex knees or back or uses arms for stability = 1. Walking time: Heels apart = 0. Gait score: 11/23. Total Score = Balance + Gait 14. Tinetti tool score: < = 18 High. Physical Education Intervention Physical Therapy Education: Pt was educated on the importance of cyrotherapy and elevation. Reviewed proper pillow placement under LE to maintain good extension. Stressed the importance also of ambulating at at least every other hour for 2-5 minutes duration and/or at least stand for a few minutes and completion of HEP 2x/day. Patient was educated with regards to signs and symptoms to monitor with respect to blood clots and infection. Reviewed SAMANTHA precautions. Therapeutic Exercise : Pt completed right LE supine exercises of glut sets, quad sets and ankle pumps (hourly) at this time, 10x. Completed bilateral LE standing heel raises, right ham curls 10x. HEP issued and instructed. Gait Training: Gait training this date with walker with instruction for step to gait pattern for right affective LE. Verbal cues were provided fot heel to toe gait pattern and knee flexion during swing phase; fair carryover. Therapeutic Activity: Worked on proper sit to stand, stand to sit transfers this date from recliner good carryover with SBA with verbal cues for proper sequencing and hand placement. Assessment & Plan Assessment Impairments: abnormal gait, impaired balance, impaired physical strength and pain with function Barriers to therapy: Pain Prognosis: good Goals Short Term goals (1-3 weeks) Goal 1 : Patient will demonstrate good compliance and independence with HEP. Goal 2 : Patient will ascend/descend 7-8 steps with HR and AD with supervision, step to gait pattern. Goal 3 : Patient will ambulate up to 5 minute duration or more with FWW, modified independent with good reciprical gait pattern. Goal 4 : Patient will improve PROM of Right hip from 0 to 90 degrees with pain reported at end range < 2/10. Goal 5 : Pt will demonstrate good SAMANTHA precaution with all functional transfers and bed mobility with independence. Game Attendant Goals (4-6 weeks) Goal 1 : Patient will ambulate community distances on even and uneven surfaces, independently with no AD, normalized gait pattern and < 1/10 report of pain in right hip. Goal 2 : Patient will improve Right hip/knee strength to 5/5 to assist with gait and transfer performances. Goal 3 : Patient will improve Right hip AROM from 0 to 90 degrees with end range pain < 2/10. Goal 4 : Patient will demonstrate good static and dynamic standing balance for >15 mintues without LOB or increase in hip pain. Goal 5 : Pt will ascend/descend 7-8 steps with no AD and reciprical gait pattern independently. Goal 6 : Patient will improve Tinetti Balance test to to indicate no fall risk. Plan Planned modality interventions: cryotherapy Planned therapy interventions: gait training, functional ROM exercises, strengthening, stretching, therapeutic activities, neuromuscular re-education, manual therapy, bed mobility training, home exercise program and transfer training Frequency: 2-3. Duration in weeks: 8 Treatment plan discussed with: patient Plan details: Educated patient not to over do it and to continue icing hip; patient receptive. Will trail steps next visit. documented in this encounter [facility] 03-08-2024 Telephone encounter Note Received call from PT saying patient has had no relief with oxycodone. We will cancel oxycodone and try 10mg norco every 6 hours. PDMP reviewed. [facility] 03-08-2024 Miscellaneous Notes Received call from PT saying patient has had no relief with oxycodone. We will cancel oxycodone and try 10mg norco every 6 hours. PDMP reviewed. documented in this encounter [facility] 03-08-2024 History of Presen t illness Narrative Physical Therapy Physical Therapy Evaluation Patient Name: Stella Wilson Today's Date: 03/08/2024 Subjective Current Problem: Pt is being seen today due to having a Right SAMANTHA replacement. Date of Surgery: 03/06/24 with one night stay at hosptial Current deficits: Impaired gait with dependence on an AD, impaired AROM, impaired LE strength, post op pain. Visit number 1. Time In: 2:00 pm; Time out: 2:45 pm Total time: 45 minutes [id number] Gait training x 15 minutes [id number] TherEx x 10 minutes 06198 Eval x 20 minutes. Pain Management: The patient is complaining of pain located in the right hip/thigh region. Pain rating 6/10. The pain is improved byice , rest , medications including Tylenol and percocet. The pain is aggravated by bending activity, position change. The pain is described as aching. Precautions: Standard anterior SAMANTHA precautions, WBAT R LE Prior level of function: Ambulation: Severely antalgic gait pattern without use of an AD. Assistive devices: Has FWW, str cane. ADL and IADL: Independent. Home Environment: Patient lives alone on second story apartment with 7-8 steps to enter. Objective Examination Functional Mobility: Bed Mobility: SBA Sit to Stand: SBA Stair Negotiation: TBA Ambulation: Ambulated with step to gait pattern with use of walker; fair heel to toe gait pattern with fair knee flexion with swing phase on right LE. Noted increase WB on walker with Ue's. Hip: Active ROM: Right hip flexion/extension 0 to 70 degrees . Passive ROM: Right hip extension/flexion: 0 to 75 degrees with increased muscle guarding. Manual muscle testing: Right hip 2+/5. Palpation: Normal post-op warmth with minimal edema; Incision covered with aquacel dressing and intact with zip tie sterile strips; mild bloody drainage with and intact with sterile strips. Special tests: Negative Emma Sign. Knee: Active ROM: WFL Manual muscle testing: Right knee 3/5. Ankle/Foot: Active ROM WFL. Manual muscle testing: Right ankle 4/5. Special tests Emma's sign Negative. Tinetti Gait and Balance Assessment: Sitting balance: Steady, safe = 1 . Rises from chair: Able, uses arms to help = 1 . Attempts to rise: Able, requires > 1 attempt = 1. Immediate standing balance (first 5 seconds): Steady but uses walker or other support = 1. Standing balance: Steady but uses walker or other support = 1. Nudged: Staggers, grabs, catches self = 1. Eyes closed: Steady = 1 . Turning 360 degrees: Discontinuous steps = 0 Unsteady (grabs, staggers) = 0 . Sitting down: Uses arms or not a smooth motion = 1. Balance Score: 16. Indication of gait: No hesitancy = 1. Step of length and height: Step through L = 1. Foot clearance: L foot clears floor = 1 R foot clears floor = 1. Step symmetry: Right and left step length no equal = 0. Step continuity: Stopping or discontinuity between steps = 0. Path: Mild/moderate deviation or uses w/ aid = 1. Trunk: No sway but flex knees or back or uses arms for stability = 1. Walking time: Heels apart = 0. Gait score: 11/23. Total Score = Balance + Gait . Tinetti tool score: < = 18 High. Physical Education Intervention Physical Therapy Education: Pt was educated on the importance of cyrotherapy and elevation. Reviewed proper pillow placement under LE to maintain good extension. Stressed the importance also of ambulating at at least every other hour for 2-5 minutes duration and/or at least stand for a few minutes and completion of HEP 2x/day. Patient was educated with regards to signs and symptoms to monitor with respect to blood clots and infection. Reviewed SAMANTHA precautions. Therapeutic Exercise : Pt completed right LE supine exercises of glut sets, quad sets and ankle pumps (hourly) at this time, 10x. Completed bilateral LE standing heel raises, right ham curls 10x. HEP issued and instructed. Gait Training: Gait training this date with walker with instruction for step to gait pattern for right affective LE. Verbal cues were provided fot heel to toe gait pattern and knee flexion during swing phase; fair carryover. Therapeutic Activity: Worked on proper sit to stand, stand to sit transfers this date from recliner good carryover with SBA with verbal cues for proper sequencing and hand placement. Assessment & Plan Assessment Impairments: abnormal gait, impaired balance, impaired physical strength and pain with function Barriers to therapy: Pain Prognosis: good Goals Short Term goals (1-3 weeks) Goal 1 : Patient will demonstrate good compliance and independence with HEP. Goal 2 : Patient will ascend/descend 7-8 steps with HR and AD with supervision, step to gait pattern. Goal 3 : Patient will ambulate up to 5 minute duration or more with FWW, modified independent with good reciprical gait pattern. Goal 4 : Patient will improve PROM of Right hip from 0 to 90 degrees with pain reported at end range < 2/10. Goal 5 : Pt will demonstrate good SAMANTHA precaution with all functional transfers and bed mobility with independence. Usp Goals (4-6 weeks) Goal 1 : Patient will ambulate community distances on even and uneven surfaces, independently with no AD, normalized gait pattern and < 1/10 report of pain in right hip. Goal 2 : Patient will improve Right hip/knee strength to 5/5 to assist with gait and transfer performances. Goal 3 : Patient will improve Right hip AROM from 0 to 90 degrees with end range pain < 2/10. Goal 4 : Patient will demonstrate good static and dynamic standing balance for >15 mintues without LOB or increase in hip pain. Goal 5 : Pt will ascend/descend 7-8 steps with no AD and reciprical gait pattern independently. Goal 6 : Patient will improve Tinetti Balance test to 28/28 to indicate no fall risk. Plan Planned modality interventions: cryotherapy Planned therapy interventions: gait training, functional ROM exercises, strengthening, stretching, therapeutic activities, neuromuscular re-education, manual therapy, bed mobility training, home exercise program and transfer training Frequency: 2-3. Duration in weeks: 8 Treatment plan discussed with: patient Plan details: Educated patient not to over do it and to continue icing hip; patient receptive. Pt will continue to benefit from therapy intervention to improve gait training, Right LE strength and ROM and improve functional mobility to return to PLOF documented in this encounter [facility] 03-07-2024 Note Education Materials POST OPERATIVE TOTAL HIP DISCHARGE INSTRUCTIONS: Physical Therapy: -WBAT to operative hip -Focus balance, transfers and steady gait -Use a walker -Do Not Do Active Hip Abduction Exercises On Either Hip -Ok to do ROM on knee SURGEON'S WRITTEN INSTRUCTIONS: Change dressing daily. When clean and dry for 2 days may leave open to air. Vincent hose (compression stockings) for 6 weeks. Physical therapy as prescribed. May shower, no tub bath. Do not rub/scrub incision. Wash gently. Take Aspirin 325mg daily to prevent blood clots, coated or uncoated per patient preference. WHAT YOU SHOULD KNOW AFTER YOUR OPERATION: If you need pain pills, start before the pain becomes intense. Pain pills are frequently less upsetting to your stomach if you take them with food such as crackers or bread. If you have excessive or persistent pain, swelling, bleeding, nausea, vomiting or any other problems, you should first call your surgeon for advice. If you are unable to contact your surgeon, seek help from the emergency room. FOR THE PREVENTION OF DVT AFTER LOWER EXTREMITY SURGERY What is a DVT? There is always the risk of DVT after lower extremity surgery. DVT, or deep vein thrombosis, is a blood blot in a major vein that may partially or completely block the flow of blood. The clot occurs in the legs or pelvis, in areas where blood flow is slow, or in an injured blood vessel. DVT can be life-threatening should pieces of the clot break away and travel to the lungs. This is called pulmonary embolism. What are the symptoms of DVT? The area affected by the blood clot may become swollen and painful, and possibly turn red as the normal flow of blood is blocked. You may also develop edema, which is the build up of fluid in the skin tissues surrounding the clot. If the clot is somewhere other than your leg, there may be no physical signs of DVT. If the clot breaks away and travels to your lungs, you may experience shortness of breath and chest pain. If this occurs you should call your doctor immediately or go to the emergency room. How can I prevent DVT? You should keep active. Moving the ankle and foot and bending the knee as tolerated when you are in bed and walking as tolerated. Take medication, especially the Aspirin, as prescribed by your doctor. What should I do if I think I have a DVT? You should call your doctor or go to the emergency room any time you have a sudden and unusual shortness of breath that is not related to exercise, exertion or anxiety. If you have swelling with redness and pain in your leg, you should call your doctor immediately. If there is concern then a test called ?Venous Doppler? can be done to rule of a DVT. [facility] 03-07-[address] [facility] Clinical Discharge Summary PERSON INFORMATION Name STELLA WILSON Age 63 Years 1960 Sex FEMALE Language Slovenian JUAN FELIPE DO Marital Status [facility] Service Ambulatory Surgery N [id number] Acct# Arrival 03/06/2024 06:57:59 Visit Reason SURGERY - RIGHT TOTAL HIP ANTERIOR APPROACH POSSIBLE RIGHT TOTAL HIP Acuity LOS 000 27:34 Address: [address] [place] [id number] Comment: PROVIDER INFORMATION VITALS INFORMATION Vital Sign Triage Latest Temp Oral 36.6 DegC 36.4 DegC Temp Temporal 36 DegC 36 DegC Temp Intravascular Temp Axillary Temp Rectal 02 Sat 99 % 97 % Respiratory Rate 16 br/min 18 br/min Peripheral Pulse Rate 82 bpm 68 bpm Apical Heart Rate Blood Pressure 107 mmHg / 87 mmHg 96 mmHg / 59 mmHg Comment: MEDICAL INFORMATION Allergy Info: No known allergies Medication List: Medications That Were Updated - Follow Below Instructions Other Medications Updated: oxyCODONE (oxyCODONE 5 mg oral tablet) 1 tab(s) Oral (given by mouth) every 6 hours as needed Pain - Moderate for 5 Days. Medications to Continue That Have Not Changed Other Medications amitriptyline (amitriptyline 50 mg oral tablet) 1 tab(s) Oral (given by mouth) once a day (at bedtime). Refills: 2. diclofenac (diclofenac sodium 75 mg oral delayed release tablet) 1 tab(s) Oral (given by mouth) 2 times per day. Refills: 5. DULoxetine (DULoxetine 60 mg oral delayed release capsule) 1 cap(s) Oral (given by mouth) 2 times per day. Refills: 5. levothyroxine (levothyroxine 75 mcg (0.075 mg) oral tablet) 1 tab(s) Oral (given by mouth) every day. Refills: 2. Comment: Lab and Radiology Results Laboratory or Other Results This Visit (last charted value for your 03/06/2024 visit) No Laboratory or Other Results This Visit DIET & ACTIVITY Patient Activity Level: As Tolerated Patient Diet: Regular Patient Activity Restrictions: DISCHARGE INFORMATION Discharge Disposition: Discharge Location: DEPART REASON INCOMPLETE INFORMATION PATIENT EDUCATION INFORMATION Instructions: [facility] instructions ([facility]) Follow up: With: Address: When: Carmelo Aguilar [address] [place] [address], [address] [place] [address] [facility] (1) 03/14/2024 10:15 AM DIAGNOSIS Primary osteoarthritis of right hip Comment: PHYS DOC NOTES [facility] 03-06-2024 History of Presen t illness Narrative [facility] in home PT 3x/week or daily if needed - no active abduction for 6 weeks post op - gait train w/walker - WBAT - permanent hip dislocation protocol. documented in this encounter [facility] 03-03-2024 Telephone encounter Note Post op pain rx. PDMP reviewed [facility] 03-03-2024 Miscellaneous Notes Post op pain rx. PDMP reviewed documented in this encounter [facility] 02-10-2024 History of Presen t illness Narrative Images from the original note were not included. HISTORY OF PRESENT ILLNESS: Stella Wilson is an 63 y.o. @ female. Chief complaint RT hip pain RT hip. Here to discuss options RT hip x 1 year and getting worse. Denies injury. Has seen Dr White with XR, MRI [place], taking piroxicam, tried gabapentin. Limping. Pain anterior and in groin, lateral and posterior. Occas pain into thigh. Taking TYL. Tried ice, heat and topicals, no relief. Unable to cross legs. Denies N/T, swelling. Admits popping. Admits giving out. Wakes pt at HS, unable to lay on it. Weakness. Pain is 6/10 today, goes to 10/10 after prolonged walking. Has to walk a lot at work and this aggravates pain. Also rides a bike at work and has a hard time getting leg over. Prior treatment: Dr White, XR Mag, MRI [facility] 01/10/24, taking piroxicam or diclofenac, tried gabapentin MEDICATION: Current Outpatient Medications on File Prior to Visit Medication Sig Dispense Refill amitriptyline (Elavil) 50 MG tablet Take 50 mg by mouth at bedtime diclofenac (Voltaren) 75 MG EC tablet Take 75 mg by mouth in the morning and 75 mg before bedtime. DULoxetine (Cymbalta) [address] capsule Take 60 mg by mouth in the morning and 60 mg before bedtime. levothyroxine (Synthroid, Levoxyl) 75 MCG tablet Take 75 mcg by mouth in the morning. Take before meals. piroxicam (Feldene) 10 MG capsule 10 mg No current facility-administered medications on file prior to visit. MEDICAL HISTORY: Past Medical History: Diagnosis Date Arthritis Chronic neck pain Depression (CMS/HCC) Hypothyroid (CMS/HCC) ALLERGIES: No Known Allergies VITALS: Visit Vitals Ht 5' 5 Wt 145 lb 9.6 oz BMI 24.23 kg/m Smoking Status Former BSA 1.74 m Review of Systems General: Fatigue denies. Fever denies. Night sweats denies. ENT: Decreased hearing denies. Respiratory: Cough denies. Shortness of breath denies. Cardiovascular: Chest pain denies. Cyanosis denies. Irregular heartbeat denies. Gastrointestinal: Comments denies incontinence of stool . Nausea denies. Hematology: Bleeding problems denies. Genitourinary: Comments denies dribbling. Incontinence denies. Musculoskeletal: CommentsSee [facility] for details. Skin: Rash denies. Neurologic: Dizziness denies. Headache denies. Examination General Examination: GENERAL EXAMINATION in no acute distress, well developed, well nourished . HEART: no jugular venous distention . LUNGS: regular unlabored, normal effort . NEUROLOGIC: alert and oriented . PSYCH: oriented to person, place, time and situation . PHYSICAL EXAM: Ortho Exam RIGHT HIP TENDERNESS: anterior, posterior, lateral ROM: 10 IR and 20 ER LEG LENGTH: RT shorter than LT STRENGTH: 4/5 abduction SKIN: Intact GAIT: limping IMAGING: MRI of the right hip from [facility]. There is marked loss of joint space and subchondral edema and femoral head collapse. There is an area beneath the collapsed head that is suspect for avascular necrosis. XR hip right 2 or 3 views Imaging Result: February 10, 2024 x-rays AP and lateral of the right hip demonstrate [id number] with subchondral sclerosis. There is complete loss of the joint space. Impression: Advanced osteoarthritis right hip. Zack Aguilar D.O. ASSESSMENT: ICD-10-CM 1. Primary osteoarthritis of right hip M16.11 ferrous sulfate (Fe Tabs) 325 (65 Fe) MG EC tablet 2. Chronic right hip pain M25.551 XR hip right 2 or 3 views G89.29 PLAN: I discussed options of surgical and non surgical treatment. Including conservative treatment, use of non-steriodal anti inflammatories and the risk associated with this, Physical therapy, home exercise, weight control and injections. I also discussed with the patient operative options and the risks/benefits of each and chances for success/ failure. Discussion included but was not limited to the risk of infection, blood clot,nerve injury, leg length discrepancy, instability, blood clot, failure to improve and need for additional surgery and . I answered all of the patients questions. I recommend a RT Total hip replacement. The patient was instructed to yonatan the operative site with the word Yes prior to arriving at the hospital and the patient verbalized an understanding. The patient wants to proceed and informed consent is obtained. Dr. Aguilar obtained history and examined the patient, I am acting as scribe for Dr. Aguilar/marin Aguilar D.O. documented in this encounter [facility] 02-09-2024 Note Entered by SADNRO WHITE DO on February 09, 2024 08:03:27 EDT From: JUAN WHITE DO To: [facility] Sent: 02/09/2024 08:03:27 EDT Subject: Medication Management Submitted: Complete:amitriptyline (amitriptyline 10 mg oral tablet) Signed by JUAN WHITE DO 02/09/2024 08:03:00 EDT Submitted: Complete:amitriptyline (amitriptyline 50 mg oral tablet) Signed by JUAN WHITE DO 02/09/2024 08:03:00 EDT Approved with modifications: amitriptyline (amitriptyline 50 mg tablet) TAKE 1 TABLET BY MOUTH EVERY DAY AT BEDTIME Qty: 30 tab(s) Days Supply: 30 Refills: 2 Substitutions Allowed Route To Pharmacy - [facility] Note from Pharmacy: This prescription was filled on 01/20/2024. Any refills authorized will be placed on file. From: [facility] To: JUAN WHITE DO Sent: February 09, 2024 7:02:39 AM CDT Subject: Medication Management Due: February 10, 2024 12:20:23 AM CDT On Hold Pending Signature Drug: amitriptyline (amitriptyline 50 mg oral tablet), 1 tab(s) Oral Once a day (at bedtime) Quantity: 30 tab(s) Days Supply: 0 Refills: 0 Substitutions Allowed Notes from Pharmacy: Dispensed Drug: amitriptyline (amitriptyline 50 mg oral tablet), TAKE 1 TABLET BY MOUTH EVERY DAY AT BEDTIME Quantity: 30 tab(s) Days Supply: 30 Refills: 1 Substitutions Allowed Notes from Pharmacy: This prescription was filled on 01/20/2024. Any refills authorized will be placed on file. [facility] 12-14-2023 Note - From: JUAN WHITE DO To: [facility] Clinical Pool ([facility] Sent: 12/14/2023 07:26:45 EDT Subject: FW: Medication Management Due Date/Time: 12/14/2023 19:49:00 EDT Caller Name: STELLA WILSON; Caller Number: , From: [facility] To: JUAN WHITE DO Sent: December 13, 2023 6:49:46 PM CDT Subject: Medication Management Due: December 14, 2023 12:59:18 PM CDT On Hold Pending Signature Drug: gabapentin (gabapentin 300 mg oral capsule), 3 cap(s) Oral HS,x30 day(s) Quantity: 90 cap(s) Days Supply: 0 Refills: 0 Substitutions Allowed Notes from Pharmacy: Dispensed Drug: gabapentin (gabapentin 300 mg oral capsule), TAKE 3 CAPSULES BY MOUTH AT BEDTIME FOR 30 DAYS Quantity: 90 cap(s) Days Supply: 30 Refills: 0 Substitutions Allowed Notes from Pharmacy: From: Sara Minor To: [facility] Sent: 12/14/2023 08:04:47 EDT Subject: FW: Medication Management Not Approved: Patient needs appointment gabapentin (gabapentin 300 mg capsule) TAKE 3 CAPSULES BY MOUTH AT BEDTIME FOR 30 DAYS Qty: 90 cap(s) Days Supply: 30 Refills: 0 Substitutions Allowed Route To Pharmacy - [facility] Signed by Sara Minor [facility] Evaluation + Plan note No data available for this section [facility] Evaluation note Diagnosis S/P total right hip arthroplasty- Primary [facility] Diagnosis Unilateral primary osteoarthritis, right hip- Primary Acute postoperative pain of right hip Difficulty walking Difficulty in walking Status post right hip replacement [facility] Diagnosis S/P total right hip arthroplasty Primary osteoarthritis of right hip [facility] Diagnosis S/P total right hip arthroplasty- Primary Status post closed reduction of dislocated total hip prosthesis [facility] Diagnosis Primary osteoarthritis of right hip Chronic right hip pain [facility]* Diagnosis Post-operative pain- Primary Other acute postoperative pain [facility]* Diagnosis Primary osteoarthritis of right hip- Primary [facility] Diagnosis Unilateral primary osteoarthritis, right hip- Primary Acute postoperative pain of right hip Difficulty walking Difficulty in walking Status post right hip replacement [facility] Diagnosis S/P total right hip arthroplasty Primary osteoarthritis of right hip [facility] Diagnosis Post-op pain- Primary Other acute postoperative pain [facility]* Diagnosis S/P total right hip arthroplasty- Primary Primary osteoarthritis of right hip [facility] No data available for this section [facility] No data available for this section [facility] Summary Purpose Family History No Family History Records FoundNo Family History Records FoundNo Family History Records FoundNo Family History Records Found Advance Directives No Advanced Directives Records FoundNo Advanced Directives Records FoundNo Advanced Directives Records FoundNo Advanced Directives Records Found Procedure Findings Note HNO ID: [id number] Author: Coby Shelton Service: ? Author Type: Anesthesiologist Type: Anesthesia Procedure Notes Filed: 10/24/2019 11:01 AM Note Text: ANESTHESIOLOGY PROCEDURE NOTE Peripheral Nerve Block General Information Procedure Start Time/Medication Administration: 10/24/2019 10:53 AM Procedure End time: 10/24/2019 10:58 AM Patient location during procedure: pre-opTimeout Performed Pre- procedure: timeout performed Consent Obtained: Yes Patient identity confirmed: arm band and patient Reason for block: post-op pain management/at surgeon's request and primary surgical anesthetic Staffing Anesthesiologist: Ember Shelton Resident: Preston Ovlale Performed by: anesthesiologist Preparation Sterility Preparation: hand hygiene performed prior to procedure, surgical cap used, mask used, sterile drape used during line insertion, skin prep agent completely dried prior to procedure Site Prep: Chloraprep Pre-Procedure Neuro Exam Location: [facility] Procedure Details Patient Position: supine Monitor (more content not included)... Reason for Referral Specialty Diagnoses / Procedures Referred By Amador kerr Referred To Contact Physical Therapy Diagnoses Primary osteoarthritis of right hip Procedures [place] OFFICE/OUTPATIENT [facility] MDM 60 MINUTES Debby Wood T, [employer] [address] [place] [address] Dale Mak M, PT [address] [place] [address] Referral ID Status Reason Start Date Expiration Date Visits Requested Visits Authorized [id number] Pending Review Specialty Services Required 03/06/2024 09/02/2024 1 1 Additional Source Comments INFORMATION SOURCE (unrecogn ized section and content) DATE CREATED AUTHOR 10/27/2019 [facility] DATE CREATED AUTHOR AUTHOR'S ORGANIZ ATION 08/18/2022 [facility] DATE CREATED AUTHOR AUTHOR'S ORGANIZ ATION 05/18/2024 [facility] DATE CREATED AUTHOR AUTHOR'S ORGANIZ ATION 06/05/2024 [facility] EPIC Patient Care team informatio n (unrecognized section and content) [employer] Relationship Specialty Start Date End Date Juan White MD [address] [place] [address] PCP - General Family Medicine 01/19/24 [employer] Relationship Specialty Start Date End Date Juan White MD [address] [place] [phone] PCP - General Family Medicine 01/19/24 [employer] Chief Relationship Specialty Start Date End Date Juan White MD [address] [place] [phone] PCP - General Family Medicine 01/19/24 [employer] Chief Relationship Specialty Start Date End Date Juan White MD [address] [place] [phone] PCP - General Family Medicine 01/19/24 [employer] Chief Relationship Specialty Start Date End Date Juan White MD [facility] [place] [address] PCP - General Family Medicine 01/19/24 [employer] Battalion Chief Relationship Specialty Start Date End Date Juan White MD [address] [place] [phone] PCP - General Family Medicine 01/19/24 [employer] Battalion Chief Relationship Specialty Start Date End Date Juan White MD [facility] [place] [address] PCP - General Family Medicine 01/19/24 [employer] Battalion Chief Relationship Specialty Start Date End Date Juan White MD [address] [place] [phone] PCP - General Family Medicine 01/19/24 [employer] Battalion Chief Relationship Specialty Start Date End Date Juan White MD [address] [place] [phone] PCP - General Family Medicine 01/19/24 [employer] Chief Relationship Specialty [place] [address] [place] [phone] PCP - General Family Medicine 01/19/24 Reason for Visit (unrecogniz ed section and content) Reason Comments Follow-up Reason Onset Date Comments Return to Work 05/02/2024 Reason Comments Pain FOR RECORDS PERTAINING TO PATIENTS WHO ARE OR HAVE BEEN ENROLLED IN A CHEMICAL DEPENDENCY/SUBSTANCEABUSE PROGRAM, SOME INFORMATION MAY BE OMITTED. This clinical summary was aggregated from multiple sources. Caution should be exercised in using it in the provision of clinical care. This summary normalizes information from multiple sources, and as a consequence, information in this document may materially change the coding, format and clinical context of patient data. In addition, data may be omitted in some cases. CLINICAL DECISIONS SHOULD BE BASED ON THE PRIMARY CLINICAL RECORDS. [facility]. provides no warranty or guarantee of the accuracy or completeness of information in this document.
[2024-06-07] MEDS: FENTANYL CITRATE/PF 100 MCG/2 ML VIAL 50 MCG IV (17:49)
[2024-06-07] MEDS: KETOROLAC TROMETHAMINE 30 MG/ML VIAL IVP (17:50)
[2024-06-07] MEDS: PROPOFOL 200 MG/20 ML VIAL 70 MG IVP (18:39)
--- NOTE | 2024-06-07 18:40 | XR_ITS ---
The [address] [address] Patient Name: THONG DIAZ MRN: [id number] date: 1960 Sex: F Assigned Patient Location: ER Current Patient Location: Accession/Order Number: [id number] Exam Date: 06/07/2024 18:43 Report Date: 06/07/2024 19:36 At the request of: TOBIAS MCGREGOR Procedure: XR pelvis 1-2V EXAM: XR pelvis 1-2V HISTORY: The patient is a 64-year-old female, post trial of reduction COMPARISON: 5:37 PM. XR/XR pelvis 1-2V IMPRESSION: The head of the femoral component of the right total hip prosthesis continues to be superiorly dislocated relative to the acetabular component. Electronically authenticated by: ZAIDA ABEBE Date: 06/07/2024 19:36
[2024-06-07] MEDS: FENTANYL CITRATE/PF 100 MCG/2 ML VIAL IV (19:25)
--- NOTE | 2024-06-07 19:43 | ED_ITS ---
HPI - Extremity Problem General Chief complaint: Extremity Problem, Nontraumatic Stated complaint: Hip Pain Time Seen by Provider: 06/07/24 17:32 Source: patient Mode of arrival: ambulance History of Present Illness HPI Narrative: Patient is coming to us with a severe right hip pain after she had a recent history of hip replacement almost at the end of March she also had a hip reduction almost 2 weeks after the replacement The patient was just trying to sit down when she started having pain in right hip she denies any other concern Related Data Home Medications ?Medication ?Instructions ?Recorded ?Confirmed amitriptyline 50 mg tablet 50 mg PO DAILY 04/20/24 04/20/24 diclofenac sodium 25 mg 25 mg PO BID 04/20/24 04/20/24 tablet,delayed release duloxetine 30 mg capsule,delayed 30 mg PO BID 04/20/24 04/20/24 release (Cymbalta) levothyroxine 75 mcg tablet 75 mcg PO DAILY 04/20/24 04/20/24 (Euthyrox) Allergies Allergy/AdvReac Type Severity Reaction Status Date / Time No Known Drug Allergies Allergy Verified 04/20/24 13:22 Review of Systems ROS Status of ROS 10 or more systems reviewed and unremark able except as noted in history and below Exam Narrative Exam Narrative: Nurses notes and vital signs reviewed and patient is not hypoxic. General: Well-appearing and in no apparent distress. Skin: Warm, dry, no pallor noted. No rash. Head: Normocephalic, atraumatic. Neck: Supple, non-tender. Eye: Pupils are equal, round and EOMI. No scleral icterus. Ears, Nose, Mouth, and Throat: TM are clear, no nasal mucosal hypertrophy. Oral mucosa is moist, no posterior oropharynx erythema, uvula is mid-line Cardiovascular: Regular Rate and Rhythm without murmur, gallop or rub. Respiratory: No accessory muscle use or respiratory distress. Lungs are clear to auscultation, no wheezing, rales or rhonchi Chest Wall: no tenderness Back: No midline thoracic or lumbar vertebral tenderness. No CVA tenderness Musculoskeletal: Right hip evaluation showed that the patient have limited movement in addition to the right anterior tibial pulse is preserved there is no vascular injury detected Constitutional Vital Signs, click to edit/add: Last Vital Signs Temp 98.6 F 06/07/24 17:29 Pulse 76 06/07/24 18:45 Resp 16 06/07/24 18:45 BP 118/90 06/07/24 18:45 Pulse Ox 99 06/07/24 18:45 O2 Del Method Room Air 06/07/24 17:29 Course Vital Signs Vital signs: Vital Signs Temperature 98.6 F 06/07/24 17:29 Pulse Rate 93 H 06/07/24 17:29 Respiratory Rate 20 06/07/24 17:29 Blood Pressure 162/94 H 06/07/24 17:29 Pulse Oximetry 98 06/07/24 17:29 Oxygen Delivery Method Room Air 06/07/24 17:29 Temperature 98.6 F 06/07/24 17:29 Pulse Rate 76 06/07/24 18:45 Respiratory Rate 16 06/07/24 18:45 Blood Pressure 118/90 06/07/24 18:45 Pulse Oximetry 99 06/07/24 18:45 Oxygen Delivery Method Room Air 06/07/24 17:29 MDM - Extremity (Nontraumatic) MDM Narrative Medical decision making narrative: X-ray of the right hip shows obvious dislocation mostly posterior and superior The patient was provided Dilaudid initially for pain in addition to fentanyl after arranging for reduction at the bedside and the patient was provided with propofol with the presence of the respiratory therapist Attempt to reduce the right hip was not successful The patient had a total of 90 mg of propofol The patient was tolerating that well and she did wake up from sedation with no side effect Patient case was discussed with Dr. Kennedy orthopedic and he mentioned that the patient may need revision her surgery and she need to be transferred to a tertiary center And the patient had her surgery in [facility] right now the care will be transferred to [place] emergency room Dr. Hoffman accepted the patient Discharge Plan Discharge Chief Complaint: Extremity Problem, Nontraumatic Clinical Impression: Hip dislocation, right Patient Disposition: [facility]
[2024-06-07] MEDS: ONDANSETRON PF 4 MG/2 ML VIAL IV (20:44)
[2024-06-07] MEDS: HYDROMORPHONE HCL 1 MG/ML CARTRIDGE IVP (20:44)
== END 2024-06-07 20:50 | disposition short-term general hospital (02) ==
PROVIDERS: Emergency Provider Emergency Medicine
DX: T84.020A Dislocation of internal right hip prosthesis, initial encounter (principal); M25.551 Pain in right hip
CPT/HCPCS: 27265; 72170; 73502; 96374; 96375; 96376; 99152; 99285; J1171; J1885; J2405; J2704; J3010